=== PATIENT | male | born 1985 | race Hispanic/Latino ===

== ENCOUNTER 2017-04-03 08:05 | Inpatient (IN) | payer MEDICAID, MEDICARE ==
[2017-04-03] MEDS ORDERED: Ketorolac Tromethamine 30 MG/ML VIAL ONE (08:29)
[2017-04-03] MEDS ORDERED: Ondansetron HCl/PF 4 MG/2 ML Vial ONE ×2 (08:29→10:52)
[2017-04-03] MEDS ORDERED: Insulin Regular 300 UNITS/3 ML VIAL ONE (08:29)
--- NOTE | 2017-04-03 08:54 | RAD ---
PORTABLE CHEST 1 VIEW: Date: 04/03/17 Time: 0759 hours HISTORY: Chest pain. FINDINGS: Comparison made with exam of 03/02/17. There is elevation of the right hemidiaphragm. The heart size is normal. No confluent areas of consol idation, pneumothorax, or pleural effusions are seen. IMPRESSION: No acute process. POS: [facility]
[2017-04-03 09:01] LABS: Troponin I 0.013 ng/mL (< 0.028)
[2017-04-03 09:06] LABS: Hematocrit 38.8 % (42.0-52.0); Red Blood Cell (RBC) Count 4.82 mill/uL (4.70-6.10); White Blood Cell (WBC) Count 5.1 thou/uL (4.8-10.8)
[2017-04-03 09:11] LABS: Mean Platelet Volume 7.1 fL (7.4-10.4); Neutrophil 54 % (42-75); Specimen Anomalies: Lipemic Plasma
[2017-04-03 09:53] LABS: ALT (SGPT) 9 U/L (8-55); AST (SGOT) 7 U/L (5-34); Alkaline Phosphatase 105 U/L (40-150); Anion Gap 17 mmol/L (10-20); BUN (Urea Nitrogen) 16 mg/dL (8.9-20.6); Bilirubin, Total 0.5 mg/dL (0.2-1.2); Calc. Creatinine Clearance 0 mL/min (70-130); Calcium 9.7 mg/dL (7.8-10.44); Carbon Dioxide 22 mmol/L (22-29); Chloride 91 mmol/L (98-107); Estimated GFR-MDRD Greater than 90; Globulin 4.7 g/dL (2.4-3.5); Protein, Total 8.9 g/dL (6.0-8.3)
[2017-04-03 09:54] LABS: Lipase 597 U/L (8-78)
[2017-04-03] MEDS ORDERED: Morphine 4 MG/ML VIAL ONE (10:52)
[2017-04-03] MEDS ORDERED: Dextrose 5% in Water 1,000 ML IV PRN (12:53)
[2017-04-03] MEDS ORDERED: Labetalol HCl 100 MG/20 ML VIAL SLOW IVP PRN (12:53)
[2017-04-03] MEDS ORDERED: Lorazepam 2 MG/ML VIAL SLOW IVP PRN ×2 (12:53→16:03)
[2017-04-03] MEDS ORDERED: Dextrose 50% Abboject 50 ML SYRINGE SLOW IVP PRN (12:53)
[2017-04-03] MEDS ORDERED: hydrALAZINE 20 MG/ML VIAL SLOW IVP PRN (12:53)
[2017-04-03] MEDS ORDERED: Morphine 4 MG/ML VIAL SLOW IVP PRN ×3 (13:00→16:03)
[2017-04-03 13:14] VITALS: BMI 33.8
[2017-04-03] MEDS: Sodium Chloride 0.9% 1,000 ML IV SCH ×2 (13:17→19:57)
[2017-04-03] MEDS ORDERED: Acetaminophen 325 MG TAB PO PRN (13:27)
[2017-04-03] MEDS ORDERED: HYDROcodone/Acetaminophen 5/325 mg Tablet PO PRN ×2 (13:28)
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
[2017-04-03] MEDS: Ondansetron HCl/PF 4 MG/2 ML Vial IVP PRN ×2 (15:21→20:01)
[2017-04-03] MEDS: Morphine 4 MG/ML VIAL SLOW IVP PRN ×2 (16:25→19:59)
[2017-04-03] MEDS: Famotidine/PF 20 mg/2ml Vial SLOW IVP SCH (19:58)
[2017-04-03] MEDS: Insulin Detemir 100 UNITS/ML 10 UNITS in Admixture Fee 1 EACH SC SCH (19:59)
[2017-04-04] MEDS: Sodium Chloride 0.9% 1,000 ML IV SCH ×4 (00:55→22:00)
[2017-04-04] MEDS: Morphine 4 MG/ML VIAL SLOW IVP PRN ×6 (00:56→20:33)
[2017-04-04 06:42] LABS: BUN (Urea Nitrogen) Less than 20 mg/dL (8.9-20.6)
[2017-04-04 07:29] LABS: Chloride 98 mmol/L (98-107)
[2017-04-04 07:30] LABS: Calcium 8.7 mg/dL (7.8-10.44)
[2017-04-04 07:34] LABS: Calc. Creatinine Clearance 171 mL/min (70-130); Estimated GFR-MDRD Greater than 90
[2017-04-04] MEDS: Ondansetron HCl/PF 4 MG/2 ML Vial IVP PRN ×2 (07:46→14:38)
[2017-04-04] MEDS: Famotidine/PF 20 mg/2ml Vial SLOW IVP SCH ×2 (07:50→20:28)
[2017-04-04 08:09] LABS: Band 8 % (5-11); Mean Platelet Volume 10.6 fL (7.4-10.4); Neutrophil 61 % (42-75)
[2017-04-04 08:10] LABS: Specimen Anomalies: Lipemic Plasma
[2017-04-04 08:18] LABS: Anion Gap 18 mmol/L (10-20); Carbon Dioxide 10 mmol/L (22-29)
--- NOTE | 2017-04-04 11:05 | PQF ---
CLINICAL DOCUMENTATION IMPROVEMENT CLARIFICATION FORM: ICD-10 Updated PLEASE DO AN ADDENDUM TO THE PROGRESS NOTE WITH ANY DOCUMENTATION UPDATES OR ADDITIONS AND CARRY THROUGH TO DC SUMMARY. THANK YOU. DATE: 04/04 ATTN: DR. LENORE BATRES Please exercise your independent, professional judgment in responding to the clarification form. Clinical indicators are provided on the bottom of this form for your review Please check appropriate box(s): [X ] Hyponatremia [ ] Hypernatremia [ X] Other diagnosis _Hyponatremia due to hypertryglyceridemia [ ] Unable to determine For continuity of documentation, please document condition throughout progress notes and discharge summary. Thank You. CLINICAL INDICATORS - SIGNS / SYMPTOMS/ LABS are present in the medical record: SODIUM: 126 (ON ADMIT, 04/03) 122 (04/04) RISK FACTORS: RECURRENT PANCREATITIS NAUSEA & VOMITING TREATMENT: IVF (NS 04/03 - PRESENT) IV ANTIEMETICS (ZOFRAN 04/03 - PRESENT) NPO STATUS THANK YOU! Davina (This form is maintained as a part of the permanent medical record) 2014 [employer]. All Rights Reserved Davina Beck RN, BSN [email or web address] Office: [phone] [facility]
--- NOTE | 2017-04-04 12:20 | PDOC.PN ---
- Subjective Encounter Start Date: 04/04/17 Encounter Start Time: 12:19 Mr. Puga was seen today in follow-up of acute pancreatitis. He says the abdominal pain has improved. He was able to get up take a shower and move around the room some. He says the headache is now bothering him from the sinusitis and Han's Palsy. - Objective Resuscitation Status: Resuscitation Status FULL:Full Resuscitation MAR Reviewed: Yes Vital Signs & Weight: Vital Signs (12 hours) Temp Pulse Resp BP BP Pulse Ox 04/04/17 11:26 98.2 F 103 H 16 151/89 H 95 04/04/17 08:03 98.1 F 103 H 16 166/98 H 97 04/04/17 08:00 98.1 F 103 H 16 97 04/04/17 06:25 99 152/94 H 04/04/17 05:13 98.2 F 109 H 20 147/103 H 96 04/04/17 02:00 97.9 F 104 H 20 161/90 H 95 I&O: 04/03/17 04/04/17 04/05/17 06:59 06:59 06:59 Intake Total 1370 Output Total 1800 Balance -430 Result Diagrams: 04/04/17 04:36 04/04/17 06:49 Additional Labs: Accuchecks 04/04/17 04/04/17 04/03/17 11:29 05:12 20:09 POC Glucose 243 H 211 H 242 H 04/03/17 04/03/17 16:47 13:33 POC Glucose 247 H 281 H Phys Exam - Physical Examination HEENT: PERRLA Respiratory: no wheezing, no rales, no rhonchi, clear to auscultation bilateral Cardiovascular: RRR, no significant murmur Gastrointestinal: soft, positive bowel sounds + Diffuse upper abdominal tenderness no rebound or guarding Musculoskeletal: no edema Dx/Plan (1) Acute pancreatitis Code(s): K85.90 - ACUTE PANCREATITIS WITHOUT NECROSIS OR INFECTION, UNSP Status: Acute Qualifiers: Pancreatitis type: other Comment: due to hyper TG (2) Diabetes type 2, uncontrolled Code(s): E11.65 - TYPE 2 DIABETES MELLITUS WITH HYPERGLYCEMIA Status: Chronic (3) Hypertriglyceridemia Code(s): E78.1 - PURE HYPERGLYCERIDEMIA Status: Chronic (4) Hypothyroidism Code(s): E03.9 - HYPOTHYROIDISM, UNSPECIFIED Status: Chronic (5) Obesity (BMI 30.0-34.9) Code(s): E66.9 - OBESITY, UNSPECIFIED Status: Chronic - Plan * Recurrent Pancreatitis- likely from hypertryglyceridemia- will check a lipid panel * He says he has improved a little- will give a trial of a clear liquid diet * Hyponatremia- this may be due to elevated tryglycerides- will check a lipid panel * Continue IV saline * Re-check serum sodium * DM- blood glucose is stable- continue SSI * Will add Toradol to help with pain control of the headache.
[2017-04-04] MEDS: Ketorolac Tromethamine 30 MG/ML VIAL IVP PRN ×2 (14:35→20:32)
[2017-04-04 14:56] LABS: Cholesterol Greater than 700 mg/dL (< 200 Desired)
[2017-04-04] MEDS: Insulin Detemir 100 UNITS/ML 10 UNITS in Admixture Fee 1 EACH SC SCH (20:27)
[2017-04-05] MEDS: Ondansetron HCl/PF 4 MG/2 ML Vial IVP PRN ×3 (01:06→20:14)
[2017-04-05] MEDS: Morphine 4 MG/ML VIAL SLOW IVP PRN ×5 (01:06→20:14)
[2017-04-05] MEDS: Sodium Chloride 0.9% 1,000 ML IV SCH ×5 (04:13→18:34)
[2017-04-05] MEDS: Ketorolac Tromethamine 30 MG/ML VIAL IVP PRN ×4 (05:25→22:25)
[2017-04-05] MEDS: HumaLOG 300 UNITS/3 ML VIAL SC PRN ×3 (05:27→17:17)
[2017-04-05 06:21] LABS: Chloride 104 mmol/L (98-107)
[2017-04-05 08:24] LABS: Carbon Dioxide 10 mmol/L (22-29)
[2017-04-05 08:31] LABS: BUN (Urea Nitrogen) 6 mg/dL (8.9-20.6); Calc. Creatinine Clearance 190 mL/min (70-130); Estimated GFR-MDRD Greater than 90
[2017-04-05 08:34] LABS: Calcium 7.6 mg/dL (7.8-10.44)
[2017-04-05 08:35] LABS: Anion Gap 14 mmol/L (10-20)
[2017-04-05] MEDS: Famotidine/PF 20 mg/2ml Vial SLOW IVP SCH ×2 (08:46→20:19)
[2017-04-05] MEDS: Gemfibrozil 600 MG TAB PO SCH ×2 (08:46→17:10)
--- NOTE | 2017-04-05 14:25 | PDOC.PN ---
- Subjective Encounter Start Date: 04/05/17 Encounter Start Time: 09:00 states that the pain is improving. He states he is sleepy due to the pain meds. tolerated jello and milk this morning - Objective Resuscitation Status: Resuscitation Status FULL:Full Resuscitation Vital Signs & Weight: Vital Signs (12 hours) Temp Pulse Resp BP Pulse Ox 04/05/17 11:26 98.3 F 113 H 16 141/85 H 95 04/05/17 08:00 98.6 F 103 H 16 97 04/05/17 07:16 98.6 F 103 H 16 146/80 H 97 04/05/17 05:00 97.8 F 104 H 20 173/96 H 98 I&O: 04/04/17 04/05/17 04/06/17 06:59 06:59 06:59 Intake Total 1370 1508 Output Total 1800 5000 Balance -430 3492 Result Diagrams: 04/04/17 04:36 04/05/17 04:35 Additional Labs: Accuchecks 04/05/17 04/05/17 04/05/17 11:14 05:18 00:52 POC Glucose 312 H 285 H 219 H 04/04/17 04/04/17 20:00 16:21 POC Glucose 257 H 224 H Phys Exam - Physical Examination HEENT: PERRLA, moist MMs, sclera anicteric Neck: no nodes Respiratory: no wheezing, no rhonchi, clear to auscultation bilateral Cardiovascular: RRR, no significant murmur Gastrointestinal: soft, no distention, positive bowel sounds diffuse tenderness- no guarding or rebound Musculoskeletal: no edema, pulses present Neurological: non-focal, normal sensation, moves all 4 limbs Psychiatric: normal affect Deviation from normal: lethargic but oriented Skin: no rash, normal turgor, cap refill <2 seconds Dx/Plan (1) Acute pancreatitis Code(s): K85.90 - ACUTE PANCREATITIS WITHOUT NECROSIS OR INFECTION, UNSP Status: Acute Qualifiers: Pancreatitis type: other Comment: due to hyper TG (2) Hyperglycemia due to type 2 diabetes mellitus Code(s): E11.65 - TYPE 2 DIABETES MELLITUS WITH HYPERGLYCEMIA Status: Acute (3) Hypertriglyceridemia Code(s): E78.1 - PURE HYPERGLYCERIDEMIA Status: Chronic (4) Hypothyroidism Code(s): E03.9 - HYPOTHYROIDISM, UNSPECIFIED Status: Chronic - Plan cont current plan of care * . will decreased morphine dose advance diet to solid foods this evening if better tmrw, pt can likely be dc'ed home
--- NOTE | 2017-04-05 15:40 | EKG ---
Test Reason : EPIGASTRIC PAIN Blood Pressure : / mmHG Vent. Rate : 100 BPM Atrial Rate : 100 BPM P-R Int : 150 ms QRS Dur : 094 ms QT Int : 344 ms P-R-T Axes : 022 -50 070 degrees QTc Int : 443 ms Normal sinus rhythm Left anterior fascicular block Cannot rule out Inferior infarct , age undetermined Abnormal ECG Confirmed by JOHNATHON KEVIN D.O. ([id number]), editor greeting card SVEN MENA ([id number]) on 04/05/2017 3:39:52 PM Referred By: HERBERTH Confirmed By:JOHNATHON KEVIN D.O.
[2017-04-05] MEDS: Insulin Detemir 100 UNITS/ML 10 UNITS in Admixture Fee 1 EACH SC SCH (20:18)
[2017-04-06] MEDS: Sodium Chloride 0.9% 1,000 ML IV SCH ×6 (00:46→22:44)
[2017-04-06] MEDS: HumaLOG 300 UNITS/3 ML VIAL SC PRN ×5 (00:47→20:44)
[2017-04-06] MEDS: Morphine 4 MG/ML VIAL SLOW IVP PRN ×6 (01:28→22:44)
[2017-04-06] MEDS: Ketorolac Tromethamine 30 MG/ML VIAL IVP PRN ×3 (03:34→18:51)
[2017-04-06 07:11] LABS: Chloride 108 mmol/L (98-107)
[2017-04-06 07:12] LABS: Calcium 8.7 mg/dL (7.8-10.44)
[2017-04-06 07:14] LABS: Anion Gap 17 mmol/L (10-20); Carbon Dioxide 10 mmol/L (22-29)
[2017-04-06 07:16] LABS: Calc. Creatinine Clearance 182 mL/min (70-130); Estimated GFR-MDRD Greater than 90
[2017-04-06 07:17] LABS: BUN (Urea Nitrogen) 8 mg/dL (8.9-20.6)
[2017-04-06] MEDS: Gemfibrozil 600 MG TAB PO SCH ×2 (08:01→15:49)
[2017-04-06] MEDS: Famotidine/PF 20 mg/2ml Vial SLOW IVP SCH ×2 (08:02→20:44)
[2017-04-06] MEDS: Ondansetron HCl/PF 4 MG/2 ML Vial IVP PRN (08:15)
[2017-04-06] MEDS: Insulin Detemir 100 UNITS/ML 10 UNITS in Admixture Fee 1 EACH SC SCH (20:43)
[2017-04-07] MEDS ORDERED: Bisacodyl 5 MG TAB PO PRN (01:53)
[2017-04-07] MEDS ORDERED: Mag-Al 1200 mg/1200 mg/30 ML UDCUP PO PRN (01:53)
[2017-04-07] MEDS ORDERED: Calcium Carbonate 500 MG ChewTAB PO PRN ×2 (01:53→01:54)
[2017-04-07] MEDS ORDERED: Milk Of Magnesia 30 ML UDCUP PO PRN (01:53)
[2017-04-07] MEDS ORDERED: Polyethylene Glycol 3350 17 GM Packet PO PRN (01:53)
[2017-04-07] MEDS: Ketorolac Tromethamine 30 MG/ML VIAL IVP PRN (02:00)
[2017-04-07] MEDS: Sodium Chloride 0.9% 1,000 ML IV SCH ×3 (04:22→12:42)
[2017-04-07] MEDS: HumaLOG 300 UNITS/3 ML VIAL SC PRN ×2 (05:55→12:03)
[2017-04-07] MEDS: Morphine 4 MG/ML VIAL SLOW IVP PRN ×2 (05:58→09:36)
[2017-04-07] MEDS: Gemfibrozil 600 MG TAB PO SCH (05:58)
[2017-04-07] MEDS: Famotidine/PF 20 mg/2ml Vial SLOW IVP SCH (08:42)
[2017-04-07] MEDS ORDERED: Acetaminophen/Codeine 30-300mg Tablet PO PRN (11:25)
--- NOTE | 2017-04-07 11:51 | DIS ---
TRANSFER OF CARE NOTE PRIMARY CARE PROVIDER: Dr. Cruz Patton DATE OF ADMISSION: 04/03/2017 DATE OF DISCHARGE: 04/07/2017 DISCHARGE DISPOSITION: Home. FINAL DIAGNOSES: 1. Acute on chronic pancreatitis. 2. Hyperlipidemia. 3. Type 2 diabetes with hyperglycemia. 4. Hypertension. DISCHARGE MEDICATIONS: Humalog 16 units subcu 1200 hours daily, 16 units subcu 0800 hours daily, 16 units subcu at 1700 hours daily, Lopid 600 mg b.i.d., gabapentin 900 mg p.o. t.i.d., Lisinopril 10 mg a day, Synthroid 75 mcg a day, Levemir 45 units subcu morning and evening, metformin 500 mg in the m orning, Tegretol 600 mg twice a day, Paxil 20 mg a day, trazodone 50 mg p.o. at bedtime. ALLERGIES: PROZAC, HEPARIN. CODE STATUS: Full. PENDING AT THE TIME OF DISCHARGE: Nothing. CONSULTATIONS: None. PROCEDURES: None. DIET: Diabetic. HOSPITAL COURSE: The patient admitted to the hospital through [facility] with a bdominal pain, nausea, and vomiting. He admitted to dietary indiscretions. His initial lipase was 5 97. His sodium was low at 126-129. He was placed n.p.o., put on antiemetics, IV morphine for pain. His abdominal pain is resolved. He was taking clear liquids yesterday. Today, he ate an omelet for breakfast, is feeling well. His abdominal exam is benign. He is being discharged to follow up with Dr. Patton in 7 days. He has been restarted on his home medicines.
[2017-04-07 12:02] VITALS: BP 117/73; TEMP 98.7
== END 2017-04-07 14:06 | disposition home or self-care (01) | DRG 439 ==
LOC: ERS 08:05 → T4-B 12:46
PROVIDERS: ADMIT Internal Medicine; ATTEND Internal Medicine
DX: K85.90 Acute pancreatitis without necrosis or infection, unspecified (principal); E87.1 Hypo-osmolality and hyponatremia; E11.69 Type 2 diabetes mellitus with other specified complication; E11.65 Type 2 diabetes mellitus with hyperglycemia; I10 Essential (primary) hypertension; K86.1 Other chronic pancreatitis; E03.9 Hypothyroidism, unspecified; G51.0 Bell's palsy; E78.1 Pure hyperglyceridemia; E66.9 Obesity, unspecified; F31.9 Bipolar disorder, unspecified; R51 Headache; Z68.33 Body mass index [BMI] 33.0-33.9, adult; Z88.8 Allergy status to other drugs, medicaments and biological substances; Z79.4 Long term (current) use of insulin
CPT/HCPCS: 36415; 36416; 71010; 80048; 80053; 80061; 82553; 83690; 84484; 85025; 93005; 96361; 96374; 96375; 96376; A4216; J1815; J1885; J2060; J2270; J2405; S0028

== ENCOUNTER 2017-04-17 23:27 | Inpatient (IN) | payer MEDICARE ==
[2017-04-17] MEDS ORDERED: Ondansetron ODT 4 MG TAB ONE (23:41)
[2017-04-18 00:41] LABS: #Eosinphils 0.2 thou/uL (0.0-0.7); #Lymphocytes 3.3 thou/uL (1.20-3.40); #Monocytes 0.4 thou/uL (0.11-0.59); #Neutrophils 5.2 thou/uL (1.40-6.50); %Basophils 0.3 % (0.0-1.0); %Eosinophils 1.8 % (0.0-10.0); %Monocytes 4.8 % (0.0-10.0); %Neutrophils 57.2 % (42.0-75.0); Hemoglobin 14.6 g/dL (14.0-18.0); Mean Corpuscular HGB CONC 37.6 g/dL (32.0-36.0); Mean Corpuscular Hemoglobin 30.4 pg (27.0-31.0); Mean Corpuscular Volume 80.9 fl (80.0-94.0); Mean Platelet Volume 9.6 fL (7.4-10.4); Platelet Count 87 thou/uL (130-400); RBC Distribution Width 13.5 % (11.5-14.5); Red Blood Cell (RBC) Count 4.81 mill/uL (4.70-6.10); White Blood Cell (WBC) Count 9.2 thou/uL (4.8-10.8)
[2017-04-18 00:48] LABS: PLT Morphology Comment Appears Decreased
[2017-04-18] MEDS ORDERED: Ondansetron HCl/PF 4 MG/2 ML Vial ONE ×3 (01:00→06:30)
[2017-04-18 01:08] LABS: Bilirubin, Total Less than 1.0 mg/dL (0.2-1.2)
[2017-04-18 01:16] LABS: Albumin 4.5 g/dL (3.5-5.0); Calcium 9.8 mg/dL (7.8-10.44); Chloride 83 mmol/L (98-107); Glucose 279 mg/dL (70-105); Potassium 3.6 mmol/L (3.5-5.1); Sodium 117 mmol/L (136-145)
[2017-04-18] MEDS ORDERED: Morphine 4 MG/ML VIAL ONE ×3 (01:26→12:00)
[2017-04-18 02:03] LABS: Base Excess-Venous 4.5 mmol/L (-30.0-30.0); CO2 Tension (PvCO2) 52.2 mmHg (41.0-51.0); Calcium, Ionized 1.04 mmol/L (1.12-1.32); Hemoglobin - Calc 14.9 g/dL (12.0-18.0); O2 Tension (PvO2) 51.8 mmHg (35.0-45.0); Potassium 4.9 mmol/L (3.4-4.7); T. Carbon Dioxide 32.6 mmol/L (1.0-85.0); pH (Venous) 7.382 (7.35-7.45); vO2 Saturation-calc 84.9 % (0.0-100.0)
[2017-04-18 02:34] LABS: Alkaline Phosphatase 107 U/L (40-150); BUN (Urea Nitrogen) 12 mg/dL (8.9-20.6); Calc. Creatinine Clearance 0 mL/min (70-130); Carbon Dioxide 22 mmol/L (22-29); Estimated GFR-MDRD Greater than 90; Globulin 1.9 g/dL (2.4-3.5); Protein, Total 6.4 g/dL (6.0-8.3)
[2017-04-18 02:35] LABS: ALT (SGPT) 10 U/L (8-55); AST (SGOT) 13 U/L (5-34); Anion Gap 16 mmol/L (10-20); Lipase 695 U/L (8-78)
[2017-04-18] MEDS ORDERED: Promethazine HCl 25 MG/ML VIAL ONE (03:20)
[2017-04-18 03:22] LABS: BUN (Urea Nitrogen) 11 mg/dL (8.9-20.6); Calc. Creatinine Clearance 0 mL/min (70-130); Carbon Dioxide 25 mmol/L (22-29); Chloride 101 mmol/L (98-107); Estimated GFR-MDRD Greater than 90; Potassium 4.1 mmol/L (3.5-5.1); Sodium 137 mmol/L (136-145)
[2017-04-18 03:23] LABS: Anion Gap 15 mmol/L (10-20); Calcium 7.8 mg/dL (7.8-10.44); Glucose 287 mg/dL (70-105)
[2017-04-18] MEDS ORDERED: Acetaminophen 325 MG TAB PO PRN (04:11)
[2017-04-18] MEDS ORDERED: Bisacodyl 5 MG TAB PO PRN (04:11)
[2017-04-18] MEDS ORDERED: Dextrose 50% Abboject 50 ML SYRINGE SLOW IVP PRN (04:34)
[2017-04-18] MEDS ORDERED: Dextrose 5% in Water 1,000 ML IV PRN (04:34)
[2017-04-18] MEDS ORDERED: hydrALAZINE 20 MG/ML VIAL SLOW IVP PRN (04:35)
[2017-04-18 04:56] LABS: Bilirubin Negative (Negative); Blood, Urine Negative (Negative); Clarity CLEAR (Clear); Glucose, Urine (Dipstick) 500 mg/dL (Negative); Leukocyte Negative (Negative); Nitrite Negative (Negative); Protein, Urine (Dipstick) 300 mg/dL (Neg-Trace); Urobilinogen 0.2 mg/dL (0.2-1.0)
[2017-04-18 04:59] LABS: Bacteria/HPF None Seen HPF (None Seen); Hyaline Casts/LPF 0-3 HYALINE CAST LPF (0-3 Hyaline); Pathc Cast-AUWi Flag 0.13 (0-2.49); RBC/HPF 0-3 HPF (0-3); Squamous Epithelial 0-3 HPF (0-3)
[2017-04-18 05:03] LABS: Specific Gravity, Urine 1.046 (1.002-1.036)
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
--- NOTE | 2017-04-18 08:28 | RAD ---
KUB: HISTORY: Abdominal pain. FINDINGS: The bowel gas pattern is nonobstructive. There is a mild amount of stool within the colon. Postop c holecystectomy changes are seen. IMPRESSION: No acute findings. POS: [facility]
--- NOTE | 2017-04-18 08:39 | CT ---
PRELIMINARY REPORT/[facility]/EMERGENCY AFTER HOURS PROCEDURE: EXAM: CT Abdomen and Pelvis With Intravenous Contrast EXAM DATE/TIME: Exam ordered 04/18/2017 4:11 AM CLINICAL HISTORY: 31 years old, male; Pain; Abdominal pain; Generalized; Patient HX: Abd pain TECHNIQUE: Axial computed tomography images of the abdomen and pelvis with intravenous contrast. Coronal reformatted images were created and reviewed. CONTRAST: 100 mL of ISOVUE administered intravenously. COMPARISON: No relevant prior studies available. FINDINGS: Lower thorax: There is subpleural atelectasis of the dependent portions of the lungs. ABDOMEN: Liver: There is diffuse mild enlargement of the liver. Gallbladder and bile ducts: There is a mild degree of common bile duct dilation. This may be related to prior cholecystectomy, however, correlation with bilirubin levels is recommended. Pancreas: There is inflammatory stranding surrounding the pancreas suspicious for acute pancreatitis. There is diminished attenuation of the pancreatic body/tail. Element of necrosis is possible. No win ck dilation. Spleen: The spleen is normal. Adrenals: The adrenal glands are normal. Kidneys and ureters: The kidneys are normal. No hydronephrosis. Stomach and bowel: The colon is normal. No obstruction. No mucosal thickening. Appendix: A normal appendix is identified. PELVIS: Bladder: The bladder is normal. Reproductive: The prostate gland and seminal vesicles are normal. ABDOMEN and PELVIS: Intraperitoneal space: Normal. No free air. No significant fluid collection. Bones/joints: No acute fracture. No dislocation. Soft tissues: Normal. Vasculature: There are extensive gastrosplenic venous collaterals and nonvisualization of the splenic vein suggestive of splenic vein thrombosis. No abdominal aortic aneurysm. Lymph nodes: Normal. No enlarged lymph nodes. IMPRESSION: 1. There is inflammatory stranding surrounding the pancreas compatible with acute pancreatitis. There is diminished attenuation of the pancreatic body/tail. Element of necrosis is possible. Correlation with lipase values is advised. 2. There are extensive gastrosplenic venous collaterals and nonvisualization of the splenic vein sugg estive of splenic vein thrombosis. Thank you for allowing us to participate in the care of your patient. Dictated and Authenticated by: Gurmeet Yarbrough MD 04/18/2017 5:10 AM Central Time ([place] & [place]) FINAL REPORT EMERGENCY/AFTER HOURS CT ABDOMEN AND PELVIS PERFORMED WITH INTRAVENOUS CONTRAST ENHANCEMENT: HISTORY: Abdominal pain. History of pancreatitis. COMPARISON: 09/15/2015 FINDINGS: ABDOMEN: The lung bases show atelectatic changes in the right lower lobe. There are fatty changes of the liver, which is enlarged and measures 24 cm in length. The spleen is also mildly enlarged, and it measures 14 cm. There are peripancreatic inflammatory changes seen. Th ere is a low attenuation area within the body of the pancreas, which has been present on previous exa ms. There is low attenuation change to the pancreatic tail. There is definitive pseudocyst formatio n. No air is seen to suggest any type of abscess. The gallbladder has been removed. The right and left adrenal glands and the right and left kidneys are normal in size. There is no sig nificant periaortic or mesenteric adenopathy. The appendix is normal and retrocecal in location. PELVIS: There is no adenopathy, mass, or free fluid. IMPRESSION: 1. Fatty changes of the liver with mild hepatosplenomegaly. 2. Findings compatible with pancreatitis. Some low attenuation change within the pancreatic tail co uld indicate developing necrotizing pancreatitis. There is persistent low attenuation density in the body region of the pancreas, which has been present on prior studies, stable in size. Could represe nt some type of cystic lesion of the pancreas. Could represent a pseudocyst. This report is in agreement with the temporary report issued by [facility]. POS: [facility]
--- NOTE | 2017-04-18 09:45 | PDOC.EVN ---
Event Note - Event Note Event Note: pt seen and evaluated f/u gi plan cont current mx
[2017-04-18] MEDS ORDERED: Insulin Regular 300 UNITS/3 ML VIAL ONE (09:46)
[2017-04-18] MEDS ORDERED: cefTRIAXone\\ROCEPHIN 1 GM in Sodium Chloride 0.9% 100 ML IVPB SCH (10:00)
[2017-04-18] MEDS: Sodium Chloride 0.9% 1,000 ML IV SCH ×2 (13:07→14:14)
[2017-04-18] MEDS: cefTRIAXone\\ROCEPHIN 1 GM, Syringe 0.4 ML in Sterile Water 9.6 ML SLOW IVP SCH (13:08)
[2017-04-18] MEDS ORDERED: ISOVUE-370 76%-LOCM 1 ML ONE (13:33)
[2017-04-18] MEDS ORDERED: Morphine 2 MG/ML SYRINGE SLOW IVP PRN (14:20)
[2017-04-18] MEDS: Ondansetron HCl/PF 4 MG/2 ML Vial IVP PRN ×2 (15:04→22:13)
[2017-04-18] MEDS ORDERED: Morphine 4 MG/ML VIAL SLOW IVP PRN (16:30)
[2017-04-18 17:16] LABS: Troponin I 0.031 ng/mL (< 0.028)
[2017-04-18] MEDS: HumaLOG 300 UNITS/3 ML VIAL SC PRN ×2 (17:44→22:36)
[2017-04-18] MEDS: Morphine 4 MG/ML VIAL SLOW IVP PRN (20:22)
[2017-04-18] MEDS: Ketorolac Tromethamine 30 MG/ML VIAL IVP PRN (22:13)
[2017-04-18 22:49] LABS: Troponin I 0.013 ng/mL (< 0.028)
[2017-04-19] MEDS: Morphine 4 MG/ML VIAL SLOW IVP PRN ×3 (00:31→08:40)
[2017-04-19] MEDS: Sodium Chloride 0.9% 1,000 ML IV SCH ×3 (00:33→16:30)
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
[2017-04-19] MEDS: Ketorolac Tromethamine 30 MG/ML VIAL IVP PRN ×2 (06:32→21:38)
[2017-04-19] MEDS: HumaLOG 300 UNITS/3 ML VIAL SC PRN ×4 (06:35→22:58)
[2017-04-19 06:41] LABS: Albumin 3.7 g/dL (3.5-5.0); Chloride 98 mmol/L (98-107); Sodium 131 mmol/L (136-145)
[2017-04-19 06:42] LABS: Calcium 9.2 mg/dL (7.8-10.44)
[2017-04-19 06:43] LABS: Globulin 4.3 g/dL (2.4-3.5); Glucose 252 mg/dL (70-105)
[2017-04-19 06:45] LABS: #Eosinphils 0.1 thou/uL (0.0-0.7); #Lymphocytes 1.1 thou/uL (1.20-3.40); #Monocytes 1.1 thou/uL (0.11-0.59); #Neutrophils 12.4 thou/uL (1.40-6.50); %Basophils 0.2 % (0.0-1.0); %Eosinophils 0.4 % (0.0-10.0); %Lymphocytes 7.4 % (21.0-51.0); %Monocytes 7.5 % (0.0-10.0); %Neutrophils 84.5 % (42.0-75.0); Bilirubin, Total 3.3 mg/dL (0.2-1.2); Hemoglobin 13.2 g/dL (14.0-18.0); Mean Corpuscular HGB CONC 34.1 g/dL (32.0-36.0); Mean Corpuscular Hemoglobin 28.7 pg (27.0-31.0); Mean Platelet Volume 12.6 fL (7.4-10.4); Platelet Count 78 thou/uL (130-400); RBC Distribution Width 13.9 % (11.5-14.5); Red Blood Cell (RBC) Count 4.61 mill/uL (4.70-6.10); White Blood Cell (WBC) Count 14.7 thou/uL (4.8-10.8)
[2017-04-19 06:46] LABS: Calc. Creatinine Clearance 216 mL/min (70-130); Estimated GFR-MDRD Greater than 90
[2017-04-19 06:47] LABS: BUN (Urea Nitrogen) 4 mg/dL (8.9-20.6)
[2017-04-19 06:49] LABS: ALT (SGPT) 52 U/L (8-55); Cardiac Risk 21.9 (Less than 4.5); Cholesterol 525 mg/dl (< 200 Desired); HDL Cholesterol 24 mg/dL (>60 Neg Risk)
[2017-04-19 07:11] LABS: Carbon Dioxide Less than 16 mmol/L (22-29)
[2017-04-19 07:12] LABS: Triglycerides Greater than 3800 mg/dL (Less than 150)
[2017-04-19 07:35] LABS: Alkaline Phosphatase 121 U/L (40-150)
[2017-04-19 08:12] LABS: PLT Morphology Comment Appears Decreased
[2017-04-19] MEDS: cefTRIAXone\\ROCEPHIN 1 GM, Syringe 0.4 ML in Sterile Water 9.6 ML SLOW IVP SCH (08:43)
[2017-04-19] MEDS: Levothyroxine Sodium 75 MCG TAB PO SCH (08:45)
[2017-04-19] MEDS: Ondansetron HCl/PF 4 MG/2 ML Vial IVP PRN ×3 (11:07→21:44)
[2017-04-19] MEDS: Morphine 2 MG/ML SYRINGE SLOW IVP PRN ×6 (12:16→22:59)
--- NOTE | 2017-04-19 13:18 | PDOC.PN ---
- Subjective Encounter Start Date: 04/19/17 Encounter Start Time: 13:17 c/o abd pain c/o n/v no f/c - Objective MAR Reviewed: Yes Vital Signs & Weight: Vital Signs (12 hours) Temp Pulse Resp BP Pulse Ox 04/19/17 11:25 98.0 F 113 H 18 153/95 H 95 04/19/17 08:00 98.4 F 112 H 18 94 L 04/19/17 07:50 98.4 F 112 H 18 131/83 94 L Weight Weight 200 lb I&O: 04/18/17 04/19/17 04/20/17 06:59 06:59 06:59 Intake Total 600 1200 Output Total 1000 825 Balance -400 375 Result Diagrams: 04/19/17 05:15 04/19/17 05:15 Additional Labs: Accuchecks 04/19/17 04/19/17 04/18/17 10:56 05:36 22:23 POC Glucose 219 H 233 H 250 H 04/18/17 16:12 POC Glucose 276 H Phys Exam - Physical Examination Constitutional: NAD HEENT: PERRLA Neck: no JVD Respiratory: no wheezing Cardiovascular: no significant murmur tender in epigastric area Musculoskeletal: pulses present Neurological: moves all 4 limbs Psychiatric: A&O x 3 Dx/Plan (1) Acute pancreatitis Code(s): K85.90 - ACUTE PANCREATITIS WITHOUT NECROSIS OR INFECTION, UNSP Status: Acute Comment: due to hyper TG (2) Hyperglycemia due to type 2 diabetes mellitus Code(s): E11.65 - TYPE 2 DIABETES MELLITUS WITH HYPERGLYCEMIA Status: Acute (3) Anxiety and depression Code(s): F41.9 - ANXIETY DISORDER, UNSPECIFIED; F32.9 - MAJOR DEPRESSIVE DISORDER, SINGLE EPISODE, UNSPECIFIED Status: Chronic (4) Hypertriglyceridemia Code(s): E78.1 - PURE HYPERGLYCERIDEMIA Status: Chronic (5) Obesity (BMI 30.0-34.9) Code(s): E66.9 - OBESITY, UNSPECIFIED Status: Chronic - Plan * ivf * pain mx * check lipase * start meds for high tgl * gi input appreciated
[2017-04-19] MEDS: Gemfibrozil 600 MG TAB PO SCH (16:30)
[2017-04-19] MEDS: Promethazine HCl 25 MG SUPP PR PRN (18:23)
--- NOTE | 2017-04-19 19:36 | PRG ---
DATE OF SERVICE: 04/19/2017 SUBJECTIVE: This is a 31-year-old Latin-Polish male with hypertension, diabetes mellitus, hyperlipidemia. The patient has had recurrent pancreatitis over the last 7-8 years. He does not drink alcohol. He also has had a laparoscopic cholecystectomy in 2016. His pancreatitis was due to hyperlipidemia. On admission, his serum was lipemic. The patient still has abdominal pain. There is no nausea or vomiting today. His pain is predominantly over the epigastric area going into the left upper quadrant. PHYSICAL EXAMINATION: GENERAL: Revealed moderate discomfort. VITAL SIGNS: Afebrile. Pulse is 113, blood pressure is 153/95. CARDIOVASCULAR SYSTEM AND LUNGS: Within normal limits. ABDOMEN: Soft to palpate. Abdomen is tender over the epigastric area and periumbilical area. There is no rebound or guarding. CLINICAL IMPRESSION: 1. Recurrent pancreatitis due to hyperlipidemia. 2. Diabetes. 3. Hypertension. RECOMMENDATIONS: 1. Keep n.p.o. 2. IV fluids. 3. Analgesics. 4. Follow up serum lipase, and when his pain improves, we will start p.o. fluids. ENRRIQUE
[2017-04-19] MEDS: Atorvastatin Calcium 40 MG TAB PO SCH (20:18)
[2017-04-20] MEDS: Morphine 2 MG/ML SYRINGE SLOW IVP PRN ×8 (00:58→22:24)
[2017-04-20] MEDS: Ondansetron HCl/PF 4 MG/2 ML Vial IVP PRN ×3 (03:43→22:24)
[2017-04-20] MEDS: Ketorolac Tromethamine 30 MG/ML VIAL IVP PRN ×3 (04:33→17:35)
[2017-04-20] MEDS: Promethazine HCl 25 MG SUPP PR PRN (04:36)
[2017-04-20 05:51] LABS: ALT (SGPT) 43 U/L (8-55)
[2017-04-20] MEDS: Sodium Chloride 0.9% 1,000 ML IV SCH (06:16)
[2017-04-20] MEDS: Gemfibrozil 600 MG TAB PO SCH ×2 (06:16→16:46)
[2017-04-20] MEDS: HumaLOG 300 UNITS/3 ML VIAL SC PRN ×3 (06:17→16:47)
[2017-04-20 06:19] LABS: #Lymphocytes 1.3 thou/uL (1.20-3.40); #Monocytes 0.8 thou/uL (0.11-0.59); #Neutrophils 9.1 thou/uL (1.40-6.50); %Basophils 0.1 % (0.0-1.0); %Eosinophils 0.3 % (0.0-10.0); %Lymphocytes 11.7 % (21.0-51.0); %Monocytes 7.3 % (0.0-10.0); %Neutrophils 80.6 % (42.0-75.0); Mean Corpuscular Hemoglobin 28.2 pg (27.0-31.0); Mean Corpuscular Volume 85.4 fl (80.0-94.0); Mean Platelet Volume 12.5 fL (7.4-10.4); PLT Morphology Comment Appears Adequate; Platelet Count 133 thou/uL (130-400); RBC Distribution Width 14.2 % (11.5-14.5); Red Blood Cell (RBC) Count 4.61 mill/uL (4.70-6.10); White Blood Cell (WBC) Count 11.2 thou/uL (4.8-10.8)
[2017-04-20 08:10] LABS: Albumin 3.4 g/dL (3.5-5.0)
[2017-04-20 08:11] LABS: Chloride 102 mmol/L (98-107); Potassium 4.6 mmol/L (3.5-5.1); Sodium 128 mmol/L (136-145)
[2017-04-20 08:12] LABS: Calcium 9.5 mg/dL (7.8-10.44); Globulin 4.8 g/dL (2.4-3.5); Glucose 231 mg/dL (70-105); Protein, Total 8.2 g/dL (6.0-8.3)
[2017-04-20 08:14] LABS: Anion Gap 22 mmol/L (10-20); Bilirubin, Total 3.3 mg/dL (0.2-1.2)
[2017-04-20 08:15] LABS: Alkaline Phosphatase 166 U/L (40-150)
[2017-04-20 08:16] LABS: BUN (Urea Nitrogen) 5 mg/dL (8.9-20.6); Calc. Creatinine Clearance 200 mL/min (70-130); Estimated GFR-MDRD Greater than 90
[2017-04-20 08:17] LABS: AST (SGOT) 54 U/L (5-34)
[2017-04-20 08:18] LABS: Lipase 134 U/L (8-78)
[2017-04-20] MEDS: Levothyroxine Sodium 75 MCG TAB PO SCH (08:31)
[2017-04-20 08:36] LABS: Carbon Dioxide 9 mmol/L (22-29)
[2017-04-20] MEDS ORDERED: Sodium Bicarbonate 50 MEQ in Dextrose 5 %-0.45 % NaCl 1,000 ML IV SCH (09:15)
[2017-04-20] MEDS: cefTRIAXone\\ROCEPHIN 1 GM, Syringe 0.4 ML in Sterile Water 9.6 ML SLOW IVP SCH (11:53)
[2017-04-20 13:41] LABS: Potassium 6.2 mmol/L (3.5-5.1); Sodium 128 mmol/L (136-145)
[2017-04-20 13:42] LABS: Chloride 104 mmol/L (98-107)
[2017-04-20 13:43] LABS: BUN (Urea Nitrogen) 7 mg/dL (8.9-20.6); Carbon Dioxide Less than 8 mmol/L (22-29)
[2017-04-20 13:44] LABS: Calc. Creatinine Clearance 170 mL/min (70-130); Calcium 8.5 mg/dL (7.8-10.44); Estimated GFR-MDRD Greater than 90; Glucose 215 mg/dL (70-105)
[2017-04-20] MEDS ORDERED: ISOVUE-370 76%-LOCM 1 ML ONE (13:49)
--- NOTE | 2017-04-20 14:50 | PRG ---
DATE OF SERVICE: 04/20/2017 SUBJECTIVE: Mr. Clifton Puga is a 31-year-old male with recurrent pancreatitis due to hyperlipidemia. The patient continues to have abdominal pain. There is no nausea. However, he is constantly belching. He is not passing flatus. His lipase level has been coming down from 695 to yesterday 177 and today to 134. However, his abdominal pain persists. He is on morphine [id number] and also on Toradol. he says he has less pain, but it is persistent. PHYSICAL EXAMINATION: GENERAL: He appears actually comfortable. VITAL SIGNS: Temperature 98.5 degrees Fahrenheit, pulse is 107, blood pressure 154/104. CARDIOVASCULAR SYSTEM: First and second heart sounds normal. LUNGS: Clear to auscultation. ABDOMEN: Actually very soft, does not show any guarding or rigidity. Abdomen is tender over the epigastric area, periumbilical area, and right upper quadrant. There is no rebound or guarding. Bowel sounds are active. LABORATORY DATA: From today, WBC is 11,200, hemoglobin 13, hematocrit 39.3, platelet count is 133,000, polymorphs 18, lymphocytes 11. Serum chemistries show sodium 128, potassium 4.6, chloride is 102, he is acidotic with bicarbonate of 19, but he does not appear to be toxic or acidotic. His CO2 level was normal at 25 on 04/18/2017, which had dropped to 16 yesterday. CLINICAL IMPRESSION: 1. Recurrent pancreatitis due to hyperlipidemia. 2. Diabetes. 3. Hypertension. 4. Acidosis. I am really not sure what is causing his acidosis. He is not having diarrhea and does appear actually septic. RECOMMENDATIONS: 1. Continue analgesics and IV fluids. 2. Repeat labs today with lactic acid. I will try to convey this to the hospitalist on-call. ENRRIQUE
--- NOTE | 2017-04-20 15:25 | PDOC.PN ---
- Subjective Encounter Start Date: 04/20/17 Encounter Start Time: 15:22 Subjective: c/o persistant pain.needing pain meds round the hour -: passing gas.no nausea/vomiting - Objective MAR Reviewed: Yes Vital Signs & Weight: Vital Signs (12 hours) Temp Pulse Resp BP BP Pulse Ox 04/20/17 11:50 98.1 F 106 H 18 132/88 97 04/20/17 10:00 96 04/20/17 08:30 106 H 16 146/94 H 96 04/20/17 08:00 98.5 F 107 H 20 96 04/20/17 07:50 98.5 F 107 H 20 154/105 H 96 04/20/17 05:15 98.1 F 109 H 18 148/89 H 96 Weight Weight 200 lb I&O: 04/19/17 04/20/17 04/21/17 06:59 06:59 06:59 Intake Total 600 2640 0 Output Total 1000 2600 1675 Balance -400 40 -1675 Result Diagrams: 04/20/17 04:59 04/20/17 12:58 Additional Labs: Accuchecks 04/20/17 04/20/17 04/19/17 11:36 04:59 21:19 POC Glucose 217 H 192 H 223 H 04/19/17 15:26 POC Glucose 216 H Phys Exam - Physical Examination Constitutional: NAD sleepy HEENT: PERRLA, moist MMs, sclera anicteric, oral pharynx no lesions Neck: no nodes, no JVD, supple, full ROM Respiratory: no wheezing, no rales, no rhonchi, clear to auscultation bilateral Cardiovascular: RRR, no significant murmur Gastrointestinal: soft, non-tender, no distention reduced Bowel sounds Musculoskeletal: no edema, pulses present Neurological: non-focal, normal sensation, moves all 4 limbs Psychiatric: normal affect, A&O x 3 Dx/Plan (1) Acute pancreatitis Code(s): K85.90 - ACUTE PANCREATITIS WITHOUT NECROSIS OR INFECTION, UNSP Status: Acute Comment: due to hyper TG (2) High anion gap metabolic acidosis Code(s): E87.2 - ACIDOSIS Status: Acute (3) Hyponatremia Code(s): E87.1 - HYPO-OSMOLALITY AND HYPONATREMIA Status: Acute Comment: Pseudohyponatremia (4) Splenic vein thrombosis Code(s): I82.890 - ACUTE EMBOLISM AND THROMBOSIS OF OTHER SPECIFIED VEINS Status: Acute (5) Diabetes type 2, uncontrolled Code(s): E11.65 - TYPE 2 DIABETES MELLITUS WITH HYPERGLYCEMIA Status: Chronic (6) Hypertriglyceridemia Code(s): E78.1 - PURE HYPERGLYCERIDEMIA Status: Chronic (7) Hypothyroidism Code(s): E03.9 - HYPOTHYROIDISM, UNSPECIFIED Status: Chronic - Plan DVT proph w/SCDs consult nephrology for severe metabolic acidosis.discussed w Dr. abdullahi -: will cont bicarb drip.change to D5 05/01 NS w 3 amp bicarb -: reckeck BMP in few hours -: Repeat CT scan.? necrosis in initial CT w splenic V thrombosis -: cont to monitor closely.hemodynamically stable.NPO * . Review of Systems - Review of Systems Constitutional: weakness, malaise. negative: fever, chills, sweats, other ENT: negative: Ear Pain, Ear Discharge, Nose Pain, Nose Discharge, Nose Congestion, Mouth Pain, Mouth Swelling, Throat Pain, Throat Swelling, Other Respiratory: negative: Cough, Dry, Shortness of Breath, Hemoptysis, SOB with Excertion, Pleuritic Pain, Sputum, Wheezing Cardiovascular: negative: chest pain, palpitations, orthopnea, paroxysmal nocturnal dyspnea, edema, light headedness, other Gastrointestinal: Abdominal Pain. negative: Nausea, Vomiting, Diarrhea, Constipation, Melena, Hematochezia, Other Genitourinary: negative: Dysuria, Frequency, Incontinence, Hematuria, Retention , Other Musculoskeletal: negative: Neck Pain, Shoulder Pain, Arm Pain, Back Pain, Hand Pain, Leg Pain, Foot Pain, Other Neurological: negative: Weakness, Numbness, Incoordination, Change in Speech, Confusion, Seizures, Other - Medications/Allergies Allergies/Adverse Reactions: Allergies Allergy/AdvReac Type Severity Reaction Status Date / Time fluoxetine HCl [From Prozac] Allergy Unknown Verified 06/20/15 03:23 heparin Allergy Verified 02/22/15 17:25 Medications: Current Medications Acetaminophen (Tylenol) 650 mg PO Q4H PRN PRN Reason: Headache/Fever or Pain Hydrocodone Bitart/Acetaminophen ([place] 10/325) 1 tab PO Q4H PRN PRN Reason: Mild-Moderate Pain (1-5) Atorvastatin Calcium (Lipitor) 80 mg PO HS [facility] Last Admin: 04/19/17 20:18 Dose: 80 mg Bisacodyl (Dulcolax) 10 mg PO DAILYPRN PRN PRN Reason: Constipation Dextrose/Water (Dextrose 50%) 25 gm SLOW IVP PRN PRN PRN Reason: Hypoglycemia Gemfibrozil (Lopid) 600 mg PO BIDAC [facility] Last Admin: 04/20/17 06:16 Dose: 600 mg Glucagon (Glucagon) 1 mg IM PRN PRN PRN Reason: Hypoglycemia Hydralazine HCl (Apresoline) 10 mg SLOW IVP Q6H PRN PRN Reason: SBP Greater Than 170 Last Admin: 04/18/17 14:25 Dose: 10 mg Dextrose/Water (D5w) 1,000 mls @ 0 mls/hr IV .Q0M PRN; As Directed PRN Reason: Hypoglycemia Sodium Bicarbonate 150 meq/ (Dextrose/Sodium Chloride) 1,150 mls @ 100 mls/hr IV .[id number] [facility] Insulin Human Lispro (Humalog) 0 units SC .MILD SLIDING SCALE PRN PRN Reason: Mild Correctional Scale Last Admin: 04/20/17 12:13 Dose: 4 unit Ketorolac Tromethamine (Toradol) 15 mg IVP Q6H PRN PRN Reason: Moderate Pain (4-6) Stop: 04/23/17 20:19 Last Admin: 04/20/17 11:54 Dose: 15 mg Levothyroxine Sodium (Synthroid) 75 mcg PO DAILY [facility] Last Admin: 04/20/17 08:31 Dose: 75 mcg Morphine Sulfate (Morphine) 2 mg SLOW IVP Q2H PRN PRN Reason: Mild-Moderate Pain (1-5) Last Admin: 04/20/17 14:24 Dose: 2 mg Ondansetron HCl (Zofran) 4 mg IVP Q6H PRN PRN Reason: Nausea/Vomiting Last Admin: 04/20/17 08:34 Dose: 4 mg Promethazine HCl (Phenergan Suppository) 25 mg [place] Q6H PRN PRN Reason: Nausea/Vomiting Last Admin: 04/20/17 04:36 Dose: 25 mg
[2017-04-20] MEDS ORDERED: Sodium Bicarbonate 150 MEQ in D5 1/4 NS 1,000 ML IV SCH (16:00)
[2017-04-20] MEDS: Sodium Bicarbonate 150 MEQ in D5 1/4 NS 1,000 ML IV SCH (19:23)
--- NOTE | 2017-04-20 19:45 | CT ---
ABDOMEN CT WITH AND WITHOUT IV CONTRAST: History: Acute pancreatitis. Comparison: 04-18-17, 09-15-15 FINDINGS: There is again noted to be prominent parapancreatic fat stranding. There are patchy areas of abnormal low attenuation change noted within the pancreatic head, body, and tail of the pancreas. Some of the se are almost a fatty density. There are more prominent than on the prior exam of 2016 and could repr esent some patchy areas of pancreatic necrosis or residual from prior pancreatic necrosis. There is s plenomegaly. There is fatty changes of the liver with some dilatation of the common bile duct and beryl tral hepatic ducts. There are some borderline sized peripancreatic and mesenteric lymph nodes. There is some prominent varices in the left upper quadrant. The port vein is intact. The splenic vein appea rs to be narrowed and may even be occluded but this has a stable appearance from the prior 2016 study . IMPRESSION: Findings of acute and chronic pancreatitis. There are numerous small patchy low attenuation changes w ithin the head, body and tail or the pancreas which are more prominent than on a prior 09-15-15 study suggesting evidence for multiple small areas of pancreatic necrosis or residual from previous necrosi s or residual from previous necrosis. Left upper quadrant varices. Splenomegaly. Fatty changes of th e liver. Common duct dilatation. POS: [facility]
[2017-04-20] MEDS ORDERED: CCU Electrolyte Replacement 1 EACH IVPB ONE (20:09)
[2017-04-20] MEDS ORDERED: Sodium Chloride 0.9% 1,000 ML IV PRN ×4 (20:09)
[2017-04-20] MEDS ORDERED: NS 0.9% w/ 20 MEQ KCL 1,000 ML IV PRN (20:09)
[2017-04-20] MEDS ORDERED: Dextrose 5 %-0.45 % NaCl 1,000 ML IV PRN (20:09)
[2017-04-20] MEDS ORDERED: Magnesium 2 GM/NS 0.9% 100 ML 2 GM in Premix Bag 1 BAG IVPB PRN (20:12)
[2017-04-20] MEDS ORDERED: CCU ELECTROLYTE REPLACEMENT PROTOCOL FS PRN (20:12)
[2017-04-20] MEDS ORDERED: Potassium Chloride 40 MEQ in Sodium Chloride 0.9% 250 ML 250 ML IVPB PRN (20:12)
[2017-04-20] MEDS ORDERED: Potassium Phosphate 12 MMOL in Sodium Chloride 0.9% 250 ML 250 ML IV PRN (20:12)
[2017-04-20] MEDS ORDERED: Magnesium Oxide 400 MG TAB PO PRN ×2 (20:12)
[2017-04-20] MEDS ORDERED: Potassium Phosphate 9 MMOL in Sodium Chloride 0.9% 100 ML IVPB PRN (20:12)
[2017-04-20] MEDS ORDERED: Potassium Phosphate 15 MMOL in Sodium Chloride 0.9% 250 ML 250 ML IV PRN (20:12)
[2017-04-20] MEDS ORDERED: Potassium Chloride 40 MEQ in Premix Bag 1 BAG IVPB PRN (20:12)
[2017-04-20] MEDS ORDERED: Potassium Chloride 20 MEQ TAB PO PRN (20:12)
[2017-04-20] MEDS: Atorvastatin Calcium 40 MG TAB PO SCH (20:36)
[2017-04-20 22:15] LABS: Lactic Acid 1.3 mmol/L (0.5-2.2)
[2017-04-20 22:34] LABS: ALT (SGPT) 38 U/L (8-55); AST (SGOT) 45 U/L (5-34); Albumin 3.5 g/dL (3.5-5.0); Alkaline Phosphatase 192 U/L (40-150); Anion Gap 20 mmol/L (10-20); BUN (Urea Nitrogen) 7 mg/dL (8.9-20.6); Bilirubin, Total 2.4 mg/dL (0.2-1.2); Calc. Creatinine Clearance 174 mL/min (70-130); Calcium 9.3 mg/dL (7.8-10.44); Carbon Dioxide 8 mmol/L (22-29); Chloride 101 mmol/L (98-107); Estimated GFR-MDRD Greater than 90; Globulin 5.5 g/dL (2.4-3.5); Glucose 258 mg/dL (70-105); Potassium 4.3 mmol/L (3.5-5.1); Sodium 125 mmol/L (136-145)
--- NOTE | 2017-04-20 23:31 | PRG ---
DATE OF SERVICE: 04/20/2017 HISTORY OF PRESENT ILLNESS: This is a 31-year-old Latin-[place] male with recurrent pancreatitis. The patient continues to have abdominal pain, although he is receiving morphine every 2 hours. The patient has no nausea or vomiting. The pain is actually over the epigastric area and periumbilical area and going towards the left upper quadrant. The patient's amylase and lipase have been trending down to 134 today. However, he is acidotic today. The bicarbonate was 9 and repeat BMP shows bicarbonate dropping to 8. His potassium is 6.2, mostly acidosis. His BUN is normal at 7. PHYSICAL EXAMINATION: GENERAL: Appears to be in moderate discomfort. VITAL SIGNS: Afebrile, pulse is 106, blood pressure 132/80. CARDIOVASCULAR SYSTEM and LUNGS: Within normal limits. ABDOMEN: Soft and no sign of any rebound or guarding. Abdomen is tender as before. IMPRESSION: 1. Severe acidosis, etiology unclear; does not appear toxic or hypotensive. 2. Hyperkalemia, mostly from acidosis. 3. Recurrent pancreatitis. 4. Thrombus, most likely chronic and acute. RECOMMENDATION: IV bicarbonate, which may help to reduce the potassium level . I believe Dr. Garza is stone gluer and will call for a Nephrology consult because of the severe acidosis. Also, I wish I could do repeat a abdominal CAT scan with contrast because of the unexpected acidosis. ENRRIQUE
[2017-04-21] MEDS: Ketorolac Tromethamine 30 MG/ML VIAL IVP PRN (00:03)
[2017-04-21] MEDS: NS 0.9% w/ 20 MEQ KCL 1,000 ML IV PRN ×2 (01:49→03:55)
[2017-04-21] MEDS: Sodium Bicarbonate 150 MEQ in D5 1/4 NS 1,000 ML IV SCH ×2 (03:51→11:34)
[2017-04-21] MEDS: Morphine 2 MG/ML SYRINGE SLOW IVP PRN ×3 (03:56→20:04)
[2017-04-21] MEDS: Ondansetron HCl/PF 4 MG/2 ML Vial IVP PRN (03:56)
[2017-04-21] MEDS: HYDROcodone/Acetaminophen 10/325 mg Tablet PO PRN ×4 (05:16→20:57)
[2017-04-21 05:27] LABS: ALT (SGPT) 35 U/L (8-55); AST (SGOT) 37 U/L (5-34); Albumin 3.2 g/dL (3.5-5.0); Alkaline Phosphatase 182 U/L (40-150); Anion Gap 18 mmol/L (10-20); BUN (Urea Nitrogen) 5 mg/dL (8.9-20.6); Bilirubin, Total 1.9 mg/dL (0.2-1.2); Calc. Creatinine Clearance 192 mL/min (70-130); Calcium 8.7 mg/dL (7.8-10.44); Carbon Dioxide 11 mmol/L (22-29); Chloride 106 mmol/L (98-107); Estimated GFR-MDRD Greater than 90; Globulin 4.4 g/dL (2.4-3.5); Glucose 184 mg/dL (70-105); Lipase 122 U/L (8-78); Potassium 3.8 mmol/L (3.5-5.1); Protein, Total 7.6 g/dL (6.0-8.3); Sodium 131 mmol/L (136-145)
[2017-04-21] MEDS: D5 1/2 NS w/20 mEq KCL 1,000 ML IV PRN ×2 (05:59→10:08)
[2017-04-21 07:08] LABS: Creatinine, Urine 45.83 mg/dL (63-166)
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
[2017-04-21] MEDS: Gemfibrozil 600 MG TAB PO SCH ×2 (07:49→15:51)
[2017-04-21] MEDS: Levothyroxine Sodium 75 MCG TAB PO SCH (07:49)
[2017-04-21 09:28] LABS: Prothrombin Time 13.2 SEC (12.0-14.7)
[2017-04-21 09:50] LABS: Magnesium 1.8 mg/dL (1.6-2.6)
[2017-04-21 10:06] LABS: Phosphorus Less than 1.0 mg/dL (2.3-4.7)
--- NOTE | 2017-04-21 13:04 | PDOC.PN ---
- Subjective Encounter Start Date: 04/21/17 Encounter Start Time: 13:02 Subjective: feels better. abdominal pain improved,no nausea - Objective MAR Reviewed: Yes Vital Signs & Weight: Vital Signs (12 hours) Temp Pulse Resp BP Pulse Ox 04/21/17 12:00 98.1 F 87 16 130/80 97 04/21/17 11:51 98 04/21/17 08:00 98.2 F 97 16 122/69 98 04/21/17 04:00 98.4 F 101 H 18 138/87 100 Weight Weight 191 lb 2 oz I&O: 04/20/17 04/21/17 04/22/17 06:59 06:59 06:59 Intake Total 2640 4490 1507 Output Total 2600 6271 650 Balance 40 -1785 857 Result Diagrams: 04/20/17 04:59 04/21/17 04:04 Additional Labs: Accuchecks 04/21/17 04/21/17 04/21/17 12:21 11:00 10:08 POC Glucose 210 H 213 H 221 H 04/21/17 04/21/17 04/21/17 09:04 07:54 07:00 POC Glucose 212 H 212 H 207 H 04/21/17 04/21/17 04/21/17 06:01 05:03 03:59 POC Glucose 169 H 155 H 167 H 04/21/17 04/21/17 04/21/17 03:15 02:12 01:13 POC Glucose 201 H 183 H 287 H 04/20/17 04/20/17 04/20/17 23:14 21:46 16:03 POC Glucose 242 H 241 H 240 H Laboratory Tests 04/04/17 04/18/17 04/18/17 06:49 00:07 00:07 PT INR Sodium 117 L* Phosphorus Magnesium Total Bilirubin Less than 1.0 AST 13 Alkaline Phosphatase 107 Triglycerides Greater than 3800 H Cholesterol Lipase 695 H B-Hydroxybutyrate 0.26 04/18/17 04/19/17 04/19/17 02:23 05:15 14:16 PT INR Sodium 137 131 L Phosphorus Magnesium Total Bilirubin 3.3 H AST TNP Alkaline Phosphatase 121 Triglycerides Greater than 3800 H Cholesterol 525 H Lipase 177 H B-Hydroxybutyrate 04/20/17 04/20/17 04/20/17 04:59 12:02 21:46 PT INR Sodium 128 L Phosphorus Magnesium Total Bilirubin 3.3 H 2.4 H AST 54 H 45 H Alkaline Phosphatase 166 H 192 H Triglycerides Cholesterol Lipase 134 H B-Hydroxybutyrate 5.36 H 04/21/17 04/21/17 04/21/17 04:04 09:06 09:06 PT INR Sodium Phosphorus Less than 1.0 L Magnesium 1.8 Total Bilirubin 1.9 H AST 37 H Alkaline Phosphatase 182 H Triglycerides Cholesterol Lipase 122 H B-Hydroxybutyrate 1.39 H 04/21/17 09:06 PT 13.2 INR 1.0 Sodium Phosphorus Magnesium Total Bilirubin AST Alkaline Phosphatase Triglycerides Cholesterol Lipase B-Hydroxybutyrate Phys Exam - Physical Examination Constitutional: NAD HEENT: PERRLA, moist MMs, sclera anicteric, oral pharynx no lesions Neck: no nodes, no JVD, supple, full ROM Respiratory: no wheezing, no rales, no rhonchi, clear to auscultation bilateral Cardiovascular: RRR, no significant murmur Gastrointestinal: soft, non-tender, no distention, positive bowel sounds Musculoskeletal: no edema, pulses present Neurological: non-focal, normal sensation, moves all 4 limbs Psychiatric: normal affect, A&O x 3 Skin: no rash Dx/Plan (1) DKA (diabetic ketoacidoses) Code(s): E13.10 - OTH DIABETES MELLITUS WITH KETOACIDOSIS WITHOUT COMA Status : Acute Qualifiers: Diabetes mellitus type: type 2 Diabetes mellitus complication detail: without coma Qualified Code(s): E11.10 - Type 2 diabetes mellitus with ketoacidosis without coma (2) Acute pancreatitis Code(s): K85.90 - ACUTE PANCREATITIS WITHOUT NECROSIS OR INFECTION, UNSP Status: Acute Comment: due to hyper TG (3) High anion gap metabolic acidosis Code(s): E87.2 - ACIDOSIS Status: Acute (4) Hyponatremia Code(s): E87.1 - HYPO-OSMOLALITY AND HYPONATREMIA Status: Acute Comment: Pseudohyponatremia (5) Splenic vein thrombosis Code(s): I82.890 - ACUTE EMBOLISM AND THROMBOSIS OF OTHER SPECIFIED VEINS Status: Acute (6) Diabetes type 2, uncontrolled Code(s): E11.65 - TYPE 2 DIABETES MELLITUS WITH HYPERGLYCEMIA Status: Chronic (7) Hypertriglyceridemia Code(s): E78.1 - PURE HYPERGLYCERIDEMIA Status: Chronic (8) Hypothyroidism Code(s): E03.9 - HYPOTHYROIDISM, UNSPECIFIED Status: Chronic - Plan out of bed/ambulate, DVT proph w/SCDs Acidosis improving.on DKA protocol.reckeck BMP. -: will switch to SubQ insulin if AG remains close.cont drip for now. -: ? pancreatic necrosis on Ct but Physical exam improved -: likley old finding.defer to GI -: replace and recheck Mag,K,etc. * .cont meds as below. * guarded prognosis Review of Systems - Review of Systems Constitutional: weakness, malaise. negative: fever, chills, sweats, other Respiratory: negative: Cough, Dry, Shortness of Breath, Hemoptysis, SOB with Excertion, Pleuritic Pain, Sputum, Wheezing Cardiovascular: negative: chest pain, palpitations, orthopnea, paroxysmal nocturnal dyspnea, edema, light headedness, other Gastrointestinal: negative: Nausea, Vomiting, Abdominal Pain, Diarrhea, Constipation, Melena, Hematochezia, Other Genitourinary: negative: Dysuria, Frequency, Incontinence, Hematuria, Retention , Other Musculoskeletal: negative: Neck Pain, Shoulder Pain, Arm Pain, Back Pain, Hand Pain, Leg Pain, Foot Pain, Other Neurological: negative: Weakness, Numbness, Incoordination, Change in Speech, Confusion, Seizures, Other - Medications/Allergies Allergies/Adverse Reactions: Allergies Allergy/AdvReac Type Severity Reaction Status Date / Time fluoxetine HCl [From Prozac] Allergy Unknown Verified 06/20/15 03:23 heparin Allergy Verified 02/22/15 17:25 Medications: Current Medications Acetaminophen (Tylenol) 650 mg PO Q4H PRN PRN Reason: Headache/Fever or Pain Hydrocodone Bitart/Acetaminophen ([place] 10/325) 1 tab PO Q4H PRN PRN Reason: Mild-Moderate Pain (1-5) Last Admin: 04/21/17 10:09 Dose: 1 tab Atorvastatin Calcium (Lipitor) 80 mg PO HS HENRY Last Admin: 04/20/17 20:36 Dose: 80 mg Bisacodyl (Dulcolax) 10 mg PO DAILYPRN PRN PRN Reason: Constipation Dextrose/Water (Dextrose 50%) 25 gm SLOW IVP PRN PRN PRN Reason: Hypoglycemia Gemfibrozil (Lopid) 600 mg PO BIDAC HENRY Last Admin: 04/21/17 07:49 Dose: 600 mg Glucagon (Glucagon) 1 mg IM PRN PRN PRN Reason: Hypoglycemia Hydralazine HCl (Apresoline) 10 mg SLOW IVP Q6H PRN PRN Reason: SBP Greater Than 170 Last Admin: 04/18/17 14:25 Dose: 10 mg Dextrose/Water (D5w) 1,000 mls @ 0 mls/hr IV .Q0M PRN; As Directed PRN Reason: Hypoglycemia Dextrose/Sodium Chloride (D5 1/2 Ns) 1,000 mls @ 250 mls/hr IV .Q4H PRN; Protocol PRN Reason: Step 4 of DKA Protocol Potassium Chloride/Dextrose/Sod Cl (D5 1/2 Ns W/20 Meq Kcl) 1,000 mls @ 250 mls /hr IV .Q4H PRN; Protocol PRN Reason: Step 4 of DKA Protocol Last Admin: 04/21/17 10:08 Dose: 1,000 mls Insulin Human Regular 100 (units/ Sodium Chloride) 101 mls @ 0 mls/hr IVPB INF HENRY; Titrate PRN Reason: Protocol Last Admin: 04/21/17 00:19 Dose: 101 mls Sodium Chloride (Normal Saline 0.9%) 1,000 mls @ 500 mls/hr IV .Q2H PRN; Protocol PRN Reason: Step 1 of DKA Protocol Last Admin: 04/21/17 00:16 Dose: 1,000 mls Sodium Chloride (Normal Saline 0.9%) 1,000 mls @ 1,000 mls/hr IV .Q1H PRN; Protocol PRN Reason: Step 1 of DKA Protocol Sodium Chloride (Normal Saline 0.9%) 1,000 mls @ 250 mls/hr IV .Q4H PRN; Protocol PRN Reason: SEE STEP 3 OF DKA PROTOCOL Sodium Chloride (Normal Saline 0.9%) 1,000 mls @ 500 mls/hr IV .Q2H PRN; Protocol PRN Reason: Step 2 of DKA Protocol Potassium Chloride/Sodium Chloride (Ns 0.9% W/ 20 Meq Kcl) 1,000 mls @ 500 mls/ hr IV .Q2H PRN; Protocol PRN Reason: Step 2 of DKA Protocol Last Admin: 04/21/17 03:55 Dose: 1,000 mls Potassium Chloride/Sodium Chloride (Ns 0.9% W/ 20 Meq Kcl) 1,000 mls @ 250 mls/ hr IV .Q4H PRN; Protocol PRN Reason: SEE STEP 3 OF DKA PROTOCOL Potassium Chloride 40 meq/ (Sodium Chloride) 270 mls @ 135 mls/hr IVPB ASDIR PRN PRN Reason: FOR SERUM K+ 2.5 - 3.5 Potassium Chloride 40 meq/ (Device) 100 mls @ 50 mls/hr IVPB ASDIR PRN PRN Reason: FOR SERUM K+ 2.5 - 3.5 Magnesium Sulfate 1 gm/ Sodium (Chloride) 102 mls @ 102 mls/hr IV PRN PRN PRN Reason: MAG LEVEL 1.4 - 2.0 Magnesium Sulfate 2 gm/ Device 100 mls @ 100 mls/hr IVPB ASDIR PRN PRN Reason: MAGNESIUM < 1.4 Potassium Phosphate 9 mmol/ (Sodium Chloride) 103 mls @ 25.75 mls/hr IVPB ASDIR PRN PRN Reason: Phosphate 1.0-1.8 Potassium Phosphate 12 mmol/ (Sodium Chloride) 254 mls @ 63.5 mls/hr IV ASDIR PRN PRN Reason: Serum phosphate 0.5-0.9 Potassium Phosphate 15 mmol/ (Sodium Chloride) 255 mls @ 63.75 mls/hr IV ASDIR PRN PRN Reason: Serum Phos < 0.5 Sodium Phosphate 40 mmol/ (Sodium Chloride) 513.3333 mls @ 64.167 mls/hr IVPB NOW HENRY Stop: 04/21/17 20:44 Potassium Phosphate 9 mmol/ (Sodium Chloride) 103 mls @ 25 mls/hr IVPB [facility] Insulin Human Lispro (Humalog) 0 units SC .MILD SLIDING SCALE PRN PRN Reason: Mild Correctional Scale Last Admin: 04/20/17 16:47 Dose: 4 unit Ketorolac Tromethamine (Toradol) 15 mg IVP Q6H PRN PRN Reason: Moderate Pain (4-6) Stop: 04/23/17 20:19 Last Admin: 04/21/17 00:03 Dose: 15 mg Levothyroxine Sodium (Synthroid) 75 mcg PO DAILY HENRY Last Admin: 04/21/17 07:49 Dose: 75 mcg Magnesium Oxide (Magnesium Oxide) 400 mg PO BIDPRN PRN PRN Reason: FOR SERUM MAG 1.4 - 2.0 Magnesium Oxide (Magnesium Oxide) 800 mg PO PRN PRN PRN Reason: FOR SERUM MAG < 1.4 Miscellaneous Medication (Phos-Nak) 1 pkt PO TIDPRN PRN PRN Reason: FOR PHOS LEVEL 1.0 - 1.8 Miscellaneous Medication (Phos-Nak) 2 pkt PO TIDPRN PRN PRN Reason: FOR PHOS LEVEL 0.5 - 1.0 Morphine Sulfate (Morphine) 2 mg SLOW IVP Q2H PRN PRN Reason: Mild-Moderate Pain (1-5) Last Admin: 04/21/17 05:58 Dose: 2 mg Ccu Electrolyte (Replacement Protocol) 0 each FS PRN PRN PRN Reason: FOR ELECTROLYTE REPLACEMENT Ondansetron HCl (Zofran) 4 mg IVP Q6H PRN PRN Reason: Nausea/Vomiting Last Admin: 04/21/17 03:56 Dose: 4 mg Potassium Chloride (K-Dur) 40 meq PO ASDIR PRN PRN Reason: FOR SERUM K+ 2.5 - 3.5 Potassium Chloride (Klor-Con) 40 meq PER TUBE ASDIR PRN PRN Reason: FOR SERUM K+ 2.5-3.5 Promethazine HCl (Phenergan Suppository) 25 mg DC Q6H PRN PRN Reason: Nausea/Vomiting Last Admin: 04/20/17 04:36 Dose: 25 mg
[2017-04-21] MEDS ORDERED: Potassium Phosphate 9 MMOL in Sodium Chloride 0.9% 100 ML IVPB SCH (13:30)
[2017-04-21 14:16] LABS: Anion Gap 13 mmol/L (10-20); BUN (Urea Nitrogen) Less than 4 mg/dL (8.9-20.6); Calc. Creatinine Clearance 213 mL/min (70-130); Calcium 8.4 mg/dL (7.8-10.44); Carbon Dioxide 15 mmol/L (22-29); Chloride 103 mmol/L (98-107); Estimated GFR-MDRD Greater than 90; Glucose 219 mg/dL (70-105); Potassium 3.6 mmol/L (3.5-5.1); Sodium 127 mmol/L (136-145)
--- NOTE | 2017-04-21 14:16 | PRG ---
DATE OF SERVICE: 04/21/2017 SUBJECTIVE: Mr. Clifton Puga is a 31-year-old male with diabetes mellitus, hyperlip idemia. The patient has had recurrent pancreatitis over the years. It was felt to be due to hyperli pidemia. The patient also had a laparoscopic cholecystectomy in 2016 for biliary sludge. The patien t began feeling acidotic yesterday. He has been seen by Nephrology, and ordered bicarbonate infusion . The patient received the intravenous emergency unit late yesterday. Today, he appears very comfor table. He denies abdominal pain or any nausea. He says he is passing flatus. He was having severe pain until yesterday, but today he says he is actually feeling better. Actually he wants to eat toda y. PHYSICAL EXAMINATION: GENERAL: Appears comfortable. VITAL SIGNS: Temperature 98.2 degrees Fahrenheit. Pulse is 97, blood pressure is 122/69. CARDIOVASCULAR/LUNGS: Within normal limits. ABDOMEN: Soft. Surprisingly abdomen is nontender on palpation over the epigastric area and left upp er quadrant. He has active bowel sounds. The patient had imaging of the abdomen yesterday. Abdominal CAT scan shows the patient appears to jimenez ve pancreatic necrosis, appears more than the first CAT scan. CLINICAL IMPRESSION: Recurrent pancreatitis, seems to be resolving biochemically. He was really sym ptomatic until yesterday, but today he is actually feeling better. The labs are pending today. RECOMMENDATIONS: I would keep him n.p.o. 1 more day to be sure that the pain does return. If he is pain free, start clear liquid diet from tomorrow morning and advance diet as tolerated. Also, recomm end follow up labs.
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
[2017-04-21] MEDS: Atorvastatin Calcium 40 MG TAB PO SCH (20:04)
[2017-04-21 20:18] LABS: Anion Gap 15 mmol/L (10-20); BUN (Urea Nitrogen) Less than 4 mg/dL (8.9-20.6); Calc. Creatinine Clearance 203 mL/min (70-130); Calcium 8.6 mg/dL (7.8-10.44); Carbon Dioxide 17 mmol/L (22-29); Chloride 102 mmol/L (98-107); Estimated GFR-MDRD Greater than 90; Glucose 240 mg/dL (70-105); Phosphorus 2.3 mg/dL (2.3-4.7); Potassium 3.5 mmol/L (3.5-5.1); Sodium 130 mmol/L (136-145)
[2017-04-21] MEDS: HumaLOG 300 UNITS/3 ML VIAL SC PRN (20:57)
--- NOTE | 2017-04-21 22:23 | PRG ---
DATE OF SERVICE: 04/21/2017 SUBJECTIVE: Patient was seen and examined at bedside and overnight events noted. Patient denies any shortness of breath or chest pain or palpitation. No history of nausea or vomiting or diarrhea or f ever or chills or cramps. OBJECTIVE: GENERAL: This is an obese male in no apparent distress. VITAL SIGNS: Temperature 97, pulse 80, respiratory rate 18, blood pressure 124/87. HEENT: Atraumatic, normocephalic, oral mucosa is moist. NECK: Supple. CARDIOVASCULAR: S1, S2 heard, rate and rhythm regular. RESPIRATORY: Clear to auscultation. GASTROINTESTINAL: Abdomen is soft. MUSCULOSKELETAL: No tenderness, no edema. DERMATOLOGIC: No skin rash. NEUROLOGIC: Alert and awake and oriented x3, no focal neurologic deficits. Moving all the extremiti es. PSYCHIATRIC: Mood and affect normal. LABORATORY DATA: Potassium is 3.6, BUN is less than 4, creatinine 0.6, sodium is 127. ASSESSMENT AND PLAN: 1. Severe acidosis, getting better, most likely from diabetic ketoacidosis. The patient is feeling better, also continue on IV fluids, diabetic ketoacidosis protocol. 2. Hyperkalemia, better. 3. Hyponatremia. 4. Recurrent pancreatitis. 5. Hypertriglyceridemia. Lactate level is normal. Continue diabetic ketoacidosis protocol. I will sign off, please call back with any questions.
[2017-04-21] MEDS: Morphine 2 mg/2ml in 0.9% NaCl PF SYRINGE SLOW IVP PRN (23:38)
[2017-04-22] MEDS: Morphine 2 mg/2ml in 0.9% NaCl PF SYRINGE SLOW IVP PRN (02:36)
[2017-04-22] MEDS: D5 1/2 NS w/20 mEq KCL 1,000 ML IV PRN (02:36)
[2017-04-22] MEDS: HYDROcodone/Acetaminophen 10/325 mg Tablet PO PRN ×2 (05:41→17:01)
[2017-04-22 06:34] LABS: ALT (SGPT) 40 U/L (8-55); AST (SGOT) 56 U/L (5-34); Alkaline Phosphatase 219 U/L (40-150); Anion Gap 18 mmol/L (10-20); BUN (Urea Nitrogen) Less than 4 mg/dL (8.9-20.6); Bilirubin, Total 1.7 mg/dL (0.2-1.2); Calc. Creatinine Clearance 228 mL/min (70-130); Carbon Dioxide 13 mmol/L (22-29); Chloride 101 mmol/L (98-107); Estimated GFR-MDRD Greater than 90; Globulin 3.8 g/dL (2.4-3.5); Glucose 232 mg/dL (70-105); Lipase 98 U/L (8-78); Potassium 3.9 mmol/L (3.5-5.1); Protein, Total 6.8 g/dL (6.0-8.3); Sodium 128 mmol/L (136-145)
[2017-04-22] MEDS: HumaLOG 300 UNITS/3 ML VIAL SC PRN ×4 (07:13→20:23)
[2017-04-22 07:23] LABS: #Eosinphils 0.1 thou/uL (0.0-0.7); #Monocytes 0.4 thou/uL (0.11-0.59); #Neutrophils 1.8 thou/uL (1.40-6.50); %Basophils 0.1 % (0.0-1.0); %Eosinophils 3.7 % (0.0-10.0); %Lymphocytes 30.3 % (21.0-51.0); %Monocytes 11.7 % (0.0-10.0); %Neutrophils 54.2 % (42.0-75.0); Hemoglobin 12.5 g/dL (14.0-18.0); Mean Corpuscular HGB CONC 32.4 g/dL (32.0-36.0); Mean Corpuscular Hemoglobin 27.8 pg (27.0-31.0); Mean Corpuscular Volume 85.7 fl (80.0-94.0); Mean Platelet Volume 10.8 fL (7.4-10.4); PLT Morphology Comment Appears Decreased; Platelet Count 87 thou/uL (130-400); RBC Distribution Width 13.9 % (11.5-14.5); RBC Morphology Normal; Red Blood Cell (RBC) Count 4.49 mill/uL (4.70-6.10); White Blood Cell (WBC) Count 3.3 thou/uL (4.8-10.8)
[2017-04-22] MEDS: Gemfibrozil 600 MG TAB PO SCH ×2 (08:39→16:57)
[2017-04-22] MEDS: Levothyroxine Sodium 75 MCG TAB PO SCH (08:39)
[2017-04-22 09:40] VITALS: BMI 31.8
--- NOTE | 2017-04-22 10:15 | PRG ---
DATE OF SERVICE: 04/22/2017 SUBJECTIVE: Patient was seen and examined at bedside and overnight events noted. Patient denies any shortness of breath or chest pain or palpitation. No history of nausea or vomiting or diarrhea or f ever or chills or cramps. OBJECTIVE: GENERAL: This is a well-built white male in no apparent distress. VITAL SIGNS: Temperature 98.1, pulse 83, respiratory rate 18, blood pressure 134/83. HEENT: Atraumatic, normocephalic. Oral mucosa is moist. NECK: Supple. CARDIOVASCULAR: S1, S2 heard. Rate and rhythm regular. RESPIRATORY: Clear to auscultation. GASTROINTESTINAL: Abdomen is soft. MUSCULOSKELETAL: No tenderness. No edema. DERMATOLOGIC: No skin rash. NEUROLOGIC: Alert and awake and oriented x3. No focal neurologic deficits. Moving all the extremiti es. PSYCHIATRIC: Mood and affect normal. LABORATORY DATA: Potassium is 3.9, sodium 128, BUN is less than 4, creatinine 0.5. ASSESSMENT AND PLAN: 1. Severe acidosis, better, but still bicarbonate levels are low. We will recommend bicarbonate sup plementation as tolerated. 2. Hyperkalemia, better and monitor potassium closely. 3. Hyponatremia. 4. Recurrent pancreatitis. 5. Hypertriglyceridemia. 6. Obesity. We would recommend adding bicarbonate to IV fluids as tolerated. We will follow.
--- NOTE | 2017-04-22 10:56 | PRG ---
DATE OF SERVICE: 04/22/2017 GI INPATIENT DAILY PROGRESS NOTE SUBJECTIVE: Mr. Puga says he is feeling hungry today. He has a bit of queasiness in the stomach, but he describes it not as nausea. He has had no vomiting. He has been passing a lot of gas. No ab dominal pain this morning. He is wanting to advance his diet if possible. PHYSICAL EXAMINATION: VITAL SIGNS: Temperature 98.1, pulse 83, blood pressure 134/83, 94% oxygen saturation on room air. GENERAL: No acute distress, sitting up in a chair comfortably. HEART: Regular rate and rhythm. LUNGS: Clear to auscultation bilaterally. ABDOMEN: Bowel sounds present, but hypoactive, soft, nontender to palpation. EXTREMITIES: No peripheral edema. LABORATORY STUDIES: WBC 3.3, hemoglobin 12.5, platelets 87. INR 1.0. Sodium 128, potassium 3.9, bi carbonate 13, chloride 101, BUN less than 4, creatinine 0.57, total bilirubin 1.7, alkaline phosphata se 219, AST 56, ALT 40, lipase down to 98. Beta hydroxybutyrate was 1.39 yesterday. Triglycerides o n admission were greater than 3800. ASSESSMENT AND PLAN: 1. Recurrent acute pancreatitis, clinically improving. 2. Hypertriglyceridemia. The patient's acute episode of pancreatitis appears to be resolving. At this point, we will start hi m on clear liquid diet. This can be advanced as tolerated to a diabetic diet if he continues to do w ell clinically. Regarding his chronic hypertriglyceridemia, this is likely the driving factor behind his recurrent episodes of pancreatitis. Triglycerides are quite elevated upon admission. He is alr caleb on fenofibrate and insulin. This is all being adjusted as an outpatient. He is going to start making some positive changes in his diet as well.
[2017-04-22] MEDS: Atorvastatin Calcium 40 MG TAB PO SCH (20:22)
[2017-04-23] MEDS: Ketorolac Tromethamine 30 MG/ML VIAL IVP PRN (02:57)
[2017-04-23 05:48] LABS: Anion Gap 16 mmol/L (10-20); BUN (Urea Nitrogen) 5 mg/dL (8.9-20.6); Calc. Creatinine Clearance 236 mL/min (70-130); Calcium 9.5 mg/dL (7.8-10.44); Carbon Dioxide 21 mmol/L (22-29); Chloride 98 mmol/L (98-107); Estimated GFR-MDRD Greater than 90; Glucose 259 mg/dL (70-105); Potassium 3.5 mmol/L (3.5-5.1); Sodium 131 mmol/L (136-145)
[2017-04-23] MEDS: HumaLOG 300 UNITS/3 ML VIAL SC PRN ×4 (06:26→20:37)
[2017-04-23] MEDS: HYDROcodone/Acetaminophen 10/325 mg Tablet PO PRN ×2 (07:53→20:37)
[2017-04-23] MEDS: Gemfibrozil 600 MG TAB PO SCH ×2 (08:00→15:31)
[2017-04-23] MEDS: Levothyroxine Sodium 75 MCG TAB PO SCH (08:00)
--- NOTE | 2017-04-23 15:14 | PDOC.PN ---
- Subjective Encounter Start Date: 04/23/17 Encounter Start Time: 15:12 Subjective: Pt seen and examined for acute pancreatitis -: Tolrating full liquid - Objective MAR Reviewed: Yes Vital Signs & Weight: Vital Signs (12 hours) Temp Pulse Resp BP Pulse Ox 04/23/17 12:19 98.5 F 88 18 144/86 H 95 04/23/17 08:51 98.5 F 85 18 130/87 95 04/23/17 08:00 98.5 F 85 18 Weight Admit Weight 200 lb Weight 191 lb I&O: 04/22/17 04/23/17 04/24/17 06:59 06:59 06:59 Intake Total 2891 800 Output Total 1350 1000 Balance 1541 -200 Result Diagrams: 04/22/17 05:39 04/23/17 03:26 Additional Labs: Accuchecks 04/23/17 04/23/17 04/22/17 11:41 06:10 20:21 POC Glucose 318 H 237 H 259 H 04/22/17 16:51 POC Glucose 235 H Phys Exam - Physical Examination Neck: no nodes, no JVD, supple, full ROM Respiratory: no wheezing, no rales, no rhonchi, wheezing present, clear to auscultation bilateral Cardiovascular: RRR, no significant murmur, no rub, gallop, irregular Gastrointestinal: soft, no distention, positive bowel sounds tenderness left lower abdomen Musculoskeletal: no edema, pulses present, edema present Neurological: non-focal, normal sensation, moves all 4 limbs Psychiatric: normal affect, A&O x 3 Dx/Plan - Plan Acute Pancreatitis sec to Hypertriglyceremia -: zero Fat diet -: Advance diet as tolerated * .
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
[2017-04-23] MEDS: Atorvastatin Calcium 40 MG TAB PO SCH (20:36)
[2017-04-24] MEDS: HYDROcodone/Acetaminophen 10/325 mg Tablet PO PRN (01:33)
[2017-04-24] MEDS: HumaLOG 300 UNITS/3 ML VIAL SC PRN ×4 (04:17→20:36)
[2017-04-24 04:40] LABS: Anion Gap 17 mmol/L (10-20); BUN (Urea Nitrogen) 8 mg/dL (8.9-20.6); Calc. Creatinine Clearance 220 mL/min (70-130); Calcium 9.7 mg/dL (7.8-10.44); Carbon Dioxide 23 mmol/L (22-29); Chloride 96 mmol/L (98-107); Estimated GFR-MDRD Greater than 90; Glucose 378 mg/dL (70-105); Potassium 3.9 mmol/L (3.5-5.1); Sodium 132 mmol/L (136-145)
--- NOTE | 2017-04-24 06:14 | PRG ---
DATE OF SERVICE: 04/23/2017 SUBJECTIVE: Patient was seen and examined at bedside and overnight events noted. Patient denies any shortness of breath or chest pain or palpitation. No history of nausea or vomiting or diarrhea or f ever or chills or cramps. OBJECTIVE: GENERAL: This is a well-built male, in no apparent distress. VITAL SIGNS: Temperature 97.7, pulse 82, respiratory rate 18, blood pressure 113/78. HEENT: Atraumatic, normocephalic. Oral mucosa is moist. NECK: Supple. CARDIOVASCULAR: S1 and S2 heard. Rate and rhythm regular. RESPIRATORY: Clear to auscultation. GASTROINTESTINAL: Abdomen is soft. MUSCULOSKELETAL: No tenderness. No edema. DERMATOLOGIC: No skin rash. NEUROLOGIC: Alert and awake and oriented x3. No focal neurologic deficits. Moving all the extremit ies. PSYCHIATRIC: Mood and affect normal. LABORATORY DATA: Potassium is 3.5, bicarbonate is 21. BUN is 5, creatinine 0.5. ASSESSMENT AND PLAN: 1. Severe acidosis, much better. Creatinine and bicarbonate supplement as tolerated. 2. Hyperkalemia, better. Limit potassium . 3. Hypertriglyceridemia. 4. Obesity. 5. Hyponatremia. 6. Renal function test, much better. 7. Acidosis, better. We will sign off. Please call back with any questions.
[2017-04-24] MEDS: Levothyroxine Sodium 75 MCG TAB PO SCH (08:43)
[2017-04-24] MEDS: Gemfibrozil 600 MG TAB PO SCH ×2 (08:43→17:15)
[2017-04-24] MEDS ORDERED: traZODone HCl 150 MG TAB PO PRN (09:59)
[2017-04-24] MEDS ORDERED: Dextrose 5% in Water 1,000 ML IV PRN (10:02)
[2017-04-24] MEDS ORDERED: Dextrose 50% Abboject 50 ML SYRINGE SLOW IVP PRN (10:02)
--- NOTE | 2017-04-24 10:05 | PDOC.PN ---
- Subjective Encounter Start Date: 04/24/17 Encounter Start Time: 10:03 Subjective: Seen and examined with no new complaint - Objective Vital Signs & Weight: Vital Signs (12 hours) Temp Pulse Resp BP Pulse Ox 04/24/17 08:00 97.7 F 92 20 145/97 H 95 04/24/17 04:08 97.6 F 83 20 136/85 95 04/24/17 00:00 97.8 F 84 16 141/96 H 96 Weight Admit Weight 200 lb Weight 191 lb I&O: 04/23/17 04/24/17 04/25/17 06:59 06:59 06:59 Intake Total 800 2388 Output Total 1000 700 Balance -200 1688 Result Diagrams: 04/22/17 05:39 04/24/17 03:44 Additional Labs: Accuchecks 04/24/17 04/23/17 04/23/17 04:15 20:36 16:30 POC Glucose 339 H 300 H 351 H 04/23/17 11:41 POC Glucose 318 H Phys Exam - Physical Examination Constitutional: NAD HEENT: PERRLA, moist MMs, sclera anicteric, TM's clear Neck: no nodes, no JVD, supple, full ROM Respiratory: no wheezing, no rhonchi, clear to auscultation bilateral Cardiovascular: RRR, no significant murmur, no rub Gastrointestinal: soft, non-tender, no distention, positive bowel sounds Musculoskeletal: no edema, pulses present Dx/Plan (1) DKA (diabetic ketoacidoses) Code(s): E13.10 - OTH DIABETES MELLITUS WITH KETOACIDOSIS WITHOUT COMA Status : Acute Qualifiers: Diabetes mellitus type: type 2 Diabetes mellitus complication detail: without coma Qualified Code(s): E11.10 - Type 2 diabetes mellitus with ketoacidosis without coma (2) High anion gap metabolic acidosis Code(s): E87.2 - ACIDOSIS Status: Acute (3) Hyponatremia Code(s): E87.1 - HYPO-OSMOLALITY AND HYPONATREMIA Status: Acute Comment: Pseudohyponatremia (4) Splenic vein thrombosis Code(s): I82.890 - ACUTE EMBOLISM AND THROMBOSIS OF OTHER SPECIFIED VEINS Status: Acute (5) Acute pancreatitis Code(s): K85.90 - ACUTE PANCREATITIS WITHOUT NECROSIS OR INFECTION, UNSP Status: Acute Comment: due to hyper TG (6) Hyperglycemia due to type 2 diabetes mellitus Code(s): E11.65 - TYPE 2 DIABETES MELLITUS WITH HYPERGLYCEMIA Status: Acute (7) Thrombocytopenia Code(s): D69.6 - THROMBOCYTOPENIA, UNSPECIFIED Status: Acute (8) Anxiety and depression Code(s): F41.9 - ANXIETY DISORDER, UNSPECIFIED; F32.9 - MAJOR DEPRESSIVE DISORDER, SINGLE EPISODE, UNSPECIFIED Status: Chronic - Plan plan discussed w/ family, PT/OT, licensed social worker D/c insulin gtt -: start scheduled insulin -: Hold metformin for now -: D/c IVF--dispo planning -: Tryglycerides treatment * .
[2017-04-24] MEDS ORDERED: INSULIN DETEMIR SC SCH (11:15)
[2017-04-24] MEDS ORDERED: metFORMIN 500 MG TAB PO SCH (16:30)
--- NOTE | 2017-04-24 18:41 | PRG ---
DATE OF SERVICE: 04/24/2017 SUBJECTIVE: Mr. Puga is without complaints. He is back to regular diet. He states he was started on his regular insulin. MEDICATIONS: Atorvastatin, Tegretol, nifedipine, gemfibrozil, glucagon p.r.n. Apresoline p.r.n., Nor co p.r.n., Humalog sliding scale p.r.n., levothyroxine 75 mcg daily, lisinopril 10 mg daily, morphine p.r.n., Paxil 20 mg daily, trazodone 50 mg daily, promethazine 25 mg daily. OBJECTIVE: VITAL SIGNS: Temperature 98, pulse 78, blood pressure 122/77. LUNGS: Clear. HEART: Regular rate and rhythm. ABDOMEN: Soft, nontender. LABORATORY STUDIES: Glucose runs in the mid to high 300s. No other labs done in the past 24-48 hour s. ASSESSMENT: 1. Pancreatitis related to severe hypertriglyceridemia. 2. Hypertriglyceridemia, probably a component and also related to poor glucose control. RECOMMENDATIONS: 1. Strict control of diabetes will help control the triglycerides. The patient will also probably n eed medicine directed at hypertriglyceridemia. 2. Low fat diet, advance as tolerated with regard to patient's pancreatitis. 3. Pancreatic lesion seen on the CT. These are consistent with previous CAT scans likely small area s of pancreatic necrosis and pseudocyst that was seen 08/2015 as well. At this time, we will sign of f of. If I can be of any further assistance in the patient's care, please do not hesitate to recons ult.
[2017-04-24] MEDS: carBAMazepine 200 MG TAB PO SCH (20:35)
[2017-04-24] MEDS: Atorvastatin Calcium 40 MG TAB PO SCH (20:35)
[2017-04-24] MEDS: INSULIN DETEMIR SC SCH (20:36)
[2017-04-24] MEDS ORDERED: INSULIN GLARGINE HUM REC ANLOG 40 UNIT SQ SCH (21:00)
[2017-04-25 04:57] LABS: Anion Gap 19 mmol/L (10-20); BUN (Urea Nitrogen) 11 mg/dL (8.9-20.6); Calc. Creatinine Clearance 203 mL/min (70-130); Calcium 9.9 mg/dL (7.8-10.44); Carbon Dioxide 22 mmol/L (22-29); Chloride 95 mmol/L (98-107); Estimated GFR-MDRD Greater than 90; Glucose 342 mg/dL (70-105); Potassium 3.8 mmol/L (3.5-5.1); Sodium 132 mmol/L (136-145)
[2017-04-25] MEDS: HumaLOG 300 UNITS/3 ML VIAL SC PRN ×4 (05:14→20:09)
[2017-04-25] MEDS ORDERED: Levothyroxine Sodium 75 MCG TAB PO SCH (06:00)
[2017-04-25] MEDS: Gemfibrozil 600 MG TAB PO SCH ×2 (08:11→16:45)
[2017-04-25] MEDS: INSULIN DETEMIR SC SCH (08:11)
[2017-04-25] MEDS: carBAMazepine 200 MG TAB PO SCH ×2 (08:11→20:08)
[2017-04-25] MEDS ORDERED: PARoxetine 20 MG TAB PO SCH (09:00)
[2017-04-25] MEDS ORDERED: Lisinopril 10 MG TAB PO SCH (09:00)
--- NOTE | 2017-04-25 18:40 | PDOC.PN ---
- Subjective Encounter Start Date: 04/25/17 Encounter Start Time: 18:40 Subjective: Seen and examined feeling better but the blood sugar is still out of contro - Objective Vital Signs & Weight: Vital Signs (12 hours) Temp Pulse Resp BP Pulse Ox 04/25/17 08:00 97.6 F 80 20 125/80 96 Weight Admit Weight 200 lb Weight 191 lb I&O: 04/24/17 04/25/17 04/26/17 06:59 06:59 06:59 Intake Total 2388 2085 1000 Output Total 700 500 Balance 1688 1585 1000 Result Diagrams: 04/22/17 05:39 04/25/17 03:24 Additional Labs: Accuchecks 04/25/17 04/25/17 04/25/17 15:50 10:54 05:14 POC Glucose 378 H 351 H 291 H 04/24/17 04/24/17 20:35 16:52 POC Glucose 353 H 317 H Phys Exam - Physical Examination Constitutional: NAD HEENT: PERRLA, moist MMs, sclera anicteric, TM's clear Neck: no nodes, no JVD, supple, full ROM Respiratory: no wheezing, no rales, no rhonchi, clear to auscultation bilateral Cardiovascular: RRR, no significant murmur, no rub Gastrointestinal: soft, non-tender, no distention, positive bowel sounds Dx/Plan (1) DKA (diabetic ketoacidoses) Code(s): E13.10 - OTH DIABETES MELLITUS WITH KETOACIDOSIS WITHOUT COMA Status : Acute Qualifiers: Diabetes mellitus type: type 2 Diabetes mellitus complication detail: without coma Qualified Code(s): E11.10 - Type 2 diabetes mellitus with ketoacidosis without coma (2) High anion gap metabolic acidosis Code(s): E87.2 - ACIDOSIS Status: Acute (3) Hyponatremia Code(s): E87.1 - HYPO-OSMOLALITY AND HYPONATREMIA Status: Acute Comment: Pseudohyponatremia (4) Splenic vein thrombosis Code(s): I82.890 - ACUTE EMBOLISM AND THROMBOSIS OF OTHER SPECIFIED VEINS Status: Acute (5) Acute pancreatitis Code(s): K85.90 - ACUTE PANCREATITIS WITHOUT NECROSIS OR INFECTION, UNSP Status: Acute Comment: due to hyper TG (6) Hyperglycemia due to type 2 diabetes mellitus Code(s): E11.65 - TYPE 2 DIABETES MELLITUS WITH HYPERGLYCEMIA Status: Acute (7) Thrombocytopenia Code(s): D69.6 - THROMBOCYTOPENIA, UNSPECIFIED Status: Acute (8) Anxiety and depression Code(s): F41.9 - ANXIETY DISORDER, UNSPECIFIED; F32.9 - MAJOR DEPRESSIVE DISORDER, SINGLE EPISODE, UNSPECIFIED Status: Chronic - Plan PT/OT, geriatric social worker Increase the insulin dose -: d/c once blood sugar is better controlled or improved at least * .
[2017-04-25] MEDS: Atorvastatin Calcium 40 MG TAB PO SCH (20:08)
[2017-04-25 20:14] VITALS: BP 121/80; TEMP 98.3
[2017-04-25] MEDS ORDERED: INSULIN DETEMIR SC SCH (21:00)
--- NOTE | 2017-04-29 11:41 | DIS ---
For details of the history and physical and consultative notes, please refer to dictations on record. SUMMARY: This is a 31-year-old gentleman who presented here with features of diabetic ketoacidosis a s well as acute pancreatitis more or less recurrent in nature. Patient was seen by various consultan ts including Nephrology, Pulmonary and Critical Care Service, Gastroenterology Service. Patient man aged conservatively with n.p.o. and eventually transitioned to oral diet intake. Patient counseled e xtensively and need to stay compliant with medications and patient spends several days in the [facility] and having maintained sustained clinical improvement was subsequently discharged on the following m edications. MEDICATIONS: Augmentin 875/125 p.o. b.i.d., Tegretol 600 mg p.o. b.i.d., Neurontin 800 mg p.o. t.i.d ., Lopid 600 mg p.o. b.i.d., insulin 40 units subcutaneously b.i.d., Synthroid 75 mcg p.o. daily, lis inopril 10 mg p.o. daily, metformin 1000 mg p.o. b.i.d., Pamelor 10/30 mg p.o. at bedtime, Paxil 20 m g p.o. daily, trazodone 50 mg p.o. at bedtime p.r.n. DIAGNOSES DURING THIS HOSPITALIZATION: Include the following, 1. Diabetic ketoacidosis. 2. High anion gap metabolic acidosis. 3. Hyponatremia. 4. Splenic vein thrombosis. 5. Acute pancreatitis. DISCHARGE INSTRUCTIONS: 1. Follow up with the primary care physician. 2. Stay compliant with medications. 3. Represent here in case of any relapse or deterioration in clinical condition. Total time spent including [id number] encounter with this patient total 30 minutes.
--- NOTE | 2017-05-23 14:57 | ADD-CON ---
ADDENDUM DATE OF CONSULTATION: 04/21/2016 TIME SPENT: 70 minutes of time was spent at the bedside and/or on the patient's floor for this consu ltation. There were no significant radiological films to review.
--- NOTE | 2017-05-24 15:23 | EKG ---
Test Reason : Blood Pressure : / mmHG Vent. Rate : 090 BPM Atrial Rate : 090 BPM P-R Int : 166 ms QRS Dur : 090 ms QT Int : 346 ms P-R-T Axes : 025 -32 051 degrees QTc Int : 423 ms Normal sinus rhythm Left axis deviation Abnormal ECG Confirmed by EUGENE HENRIQUEZ, FARRAH ([id number]), deputy editor in chief SVEN MENA ([id number]) on 05/24/2017 3:22:48 PM Referred By: Confirmed By:FARRAH KNIGHT MD
== END 2017-04-25 20:41 | disposition left against medical advice (07) | DRG 438 ==
LOC: ERS 23:27 → ERHOLD 04-18 03:46 → SURG A 04-18 12:58 → IMCU/EMU 04-20 23:44 → T4-B 04-21 22:25
PROVIDERS: ADMIT Internal Medicine; ATTEND Internal Medicine
DX: K85.90 Acute pancreatitis without necrosis or infection, unspecified (principal); E11.10 Type 2 diabetes mellitus with ketoacidosis without coma; N17.9 Acute kidney failure, unspecified; I82.890 Acute embolism and thrombosis of other specified veins; E87.1 Hypo-osmolality and hyponatremia; E11.65 Type 2 diabetes mellitus with hyperglycemia; E87.5 Hyperkalemia; D69.6 Thrombocytopenia, unspecified; E03.9 Hypothyroidism, unspecified; J32.0 Chronic maxillary sinusitis; E78.1 Pure hyperglyceridemia; Z79.4 Long term (current) use of insulin; G51.0 Bell's palsy; F31.9 Bipolar disorder, unspecified; F41.9 Anxiety disorder, unspecified; F32.9 Major depressive disorder, single episode, unspecified; Z88.8 Allergy status to other drugs, medicaments and biological substances; E78.5 Hyperlipidemia, unspecified; E66.9 Obesity, unspecified; Z68.31 Body mass index [BMI] 31.0-31.9, adult; T38.0X5A Adverse effect of glucocorticoids and synthetic analogues, initial encounter; I10 Essential (primary) hypertension; D64.9 Anemia, unspecified
CPT/HCPCS: 36415; 36416; 74000; 74170; 74177; 80048; 80053; 80061; 81003; 81015; 82010; 82330; 82550; 82570; 82803; 83605; 83690; 83735; 84100; 84156; 84484; 85025; 85610; 93005; 96361; 96374; 96375; 96376; A4216; J0360; J0696; J1815; J1885; J2270; J2405; J2550; J7042; J7050; Q0162

== ENCOUNTER 2018-10-17 18:23 | Inpatient (IN) | payer MEDICARE ==
[~2018-10-17 18:23] MED LIST: ISOVUE-370 76%-LOCM 1 ML ONE
[2018-10-17] MEDS ORDERED: Ondansetron ODT 4 MG TAB ONE (19:12)
[2018-10-17] MEDS ORDERED: Morphine 4 MG/ML VIAL ONE ×2 (19:31→22:26)
[2018-10-17 20:19] LABS: #Eosinphils 0.2 thou/uL (0.0-0.7); #Lymphocytes 0.8 thou/uL (1.20-3.40); #Monocytes 0.4 thou/uL (0.11-0.59); #Neutrophils 7.5 thou/uL (1.40-6.50); %Eosinophils 1.8 % (0.0-10.0); %Lymphocytes 9.1 % (21.0-51.0); %Monocytes 4.8 % (0.0-10.0); %Neutrophils 84.3 % (42.0-75.0); Hemoglobin 15.4 g/dL (14.0-18.0); Mean Corpuscular HGB CONC 35.1 g/dL (32.0-36.0); Mean Corpuscular Hemoglobin 28.2 pg (27.0-31.0); Mean Corpuscular Volume 80.3 fL (78.0-98.0); Mean Platelet Volume 12.1 fL (7.4-10.4); Platelet Count 125 thou/uL (130-400); RBC Distribution Width 13.1 % (11.5-14.5); RBC Morphology Normal; Red Blood Cell (RBC) Count 5.46 mill/uL (4.70-6.10); White Blood Cell (WBC) Count 8.9 thou/uL (4.8-10.8)
--- NOTE | 2018-10-17 20:26 | CT ---
CT Abdomen Pelvis W Con History: Epigastric pain. Comparison: CT abdomen and pelvis March 2017 Findings: Mild atelectasis in the lung bases. The spleen is markedly enlarged. 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 The pancreas has multiple peripancreatic fluid collections. The common bile ducts dilated proximal to the pancreatic head approximately 12 mm with n ormal appearance of the level of the pancreatic head. There is scarring along the pancreas from chronic pancreatitis. There is narrowing of the common hepatic artery. Portal vein is patent. The aortoiliac contour is nonaneurysmal. No dilated loops of large or small bowel. The appendix is vi sualized and is normal. Kidneys are unremarkable. No retroperitoneal perinephric adenopathy. Diffuse hepatic steatosis. No significant peripancreatic inflammation. Impression: 1. Evidence of chronic pancreatitis with what appears to be multiple small foci of walled off necrosi s. 2. Scarring along the pancreas with dilated common bile duct proximal to the pancreatic head likely s tricture from peripancreatic scarring. 3. Splenic vein occlusion with splenic varices. 4. Narrowing of the common hepatic artery due to peripancreatic scar. 5. Descending colon containing left lumbar hernia.
[2018-10-17 20:38] LABS: Albumin 4.5 g/dL (3.5-5.0)
[2018-10-17 20:39] LABS: Calcium 9.8 mg/dL (7.8-10.44); Carbon Dioxide 21 mmol/L (22-29)
[2018-10-17 20:40] LABS: Calc. Creatinine Clearance 0 mL/min (70-130); Estimated GFR-MDRD Greater than 90
[2018-10-17 20:42] LABS: BUN (Urea Nitrogen) 12 mg/dL (8.9-20.6); Sodium 134 mmol/L (136-145)
[2018-10-17 20:43] LABS: Chloride 98 mmol/L (98-107); Potassium 4.8 mmol/L (3.5-5.1)
[2018-10-17 20:44] LABS: Anion Gap 20 mmol/L (10-20); Glucose 318 mg/dL (70-105)
[2018-10-17 20:45] LABS: Bilirubin, Total 0.2 mg/dL (0.2-1.2); Globulin 2.8 g/dL (2.4-3.5)
[2018-10-17 20:46] LABS: Bilirubin Negative (Negative); Blood, Urine Negative (Negative); Clarity CLEAR (Clear); Glucose, Urine (Dipstick) >=1000 mg/dL (Negative); Leukocyte Negative (Negative); Nitrite Negative (Negative); Protein, Urine (Dipstick) 30 mg/dL (Neg-Trace)
[2018-10-17 20:47] LABS: Alkaline Phosphatase 103 U/L (40-150); Protein, Total 7.3 g/dL (6.0-8.3)
[2018-10-17 20:48] LABS: Bacteria/HPF None Seen HPF (None Seen); Hyaline Casts/LPF 7-10 HYALINE CAST LPF (0-3 Hyaline); RBC/HPF 0-3 HPF (0-3)
[2018-10-17 20:48] LABS: ALT (SGPT) 14 U/L (8-55); AST (SGOT) 26 U/L (5-34); Lipase 24 U/L (8-78)
[2018-10-17 20:49] LABS: Specific Gravity, Urine Greater than 1.060 (1.002-1.036)
[2018-10-18 00:35] VITALS: BMI 30.6
[2018-10-18] MEDS ORDERED: Dextrose 5% in Water 1,000 ML IV PRN (02:08)
[2018-10-18] MEDS ORDERED: Dextrose 50% Abboject 50 ML SYRINGE SLOW IVP PRN (02:08)
[2018-10-18] MEDS ORDERED: Gabapentin 400 MG CAP PO SCH (02:15)
[2018-10-18] MEDS: Acetaminophen 325 MG TAB PO PRN (02:30)
[2018-10-18] MEDS ORDERED: Ondansetron PF 4 MG/2 ML Vial IVP PRN (02:32)
[2018-10-18] MEDS ORDERED: Ondansetron ODT 4 MG TAB PO PRN (02:32)
[2018-10-18] MEDS: HumaLOG 300 UNITS/3 ML VIAL SC PRN ×5 (02:36→22:37)
[2018-10-18] MEDS: Lactated Ringer's 1,000 ML IV SCH ×4 (03:00→22:43)
[2018-10-18] MEDS: Morphine 4 MG/ML VIAL SLOW IVP PRN ×5 (03:04→20:56)
--- NOTE | 2018-10-18 04:00 | HP ---
PRIMARY CARE DOCTOR: Dr. Bre Kraft. CODE STATUS: Full code. TIME OF EVALUATION: 02:40 a.m. CHIEF COMPLAINT: Abdominal pain. HISTORY OF PRESENT ILLNESS: This is a 33-year-old male patient, past medical history of chronic pancreatitis, diabetes, history of alcohol abuse in the past. The patient came to the hospital after having severe abdominal pain with no clear triggers. No alleviating factors. Associated with nausea and vomiting, symptoms were severe. The patient reported that he had the same symptoms when he gets exacerbation of his chronic pancreatitis. REVIEW OF SYSTEMS: CONSTITUTIONAL: No fever, chills. The patient has generalized weakness. RESPIRATORY: No cough, sputum production, or shortness of breath. CARDIOVASCULAR: No chest pain or palpitation. GASTROINTESTINAL: The patient had nausea, vomiting. No diarrhea. The patient has abdominal pain that is diffuse. CENTRAL NERVOUS SYSTEM: No dizziness, headache, or feeling lightheaded. GENITOURINARY: No burning with urination EXTREMITIES: No leg swelling. All other systems were reviewed and negative except for the findings mentioned above. PAST MEDICAL HISTORY: Includes diabetes type 1, hypothyroidism, pancreatitis, Han's palsy, GERD. PAST SURGICAL HISTORY: Liver laceration repair, left femoral repair, jaw repair , cholecystectomy. FAMILY HISTORY: Reviewed and non contributory to current presentation. PSYCHIATRIC HISTORY: The patient has a history of anxiety, bipolar disorder with psych admissions. SOCIAL HISTORY: No alcohol. No drugs. No smoking history. Lives at home with family. Lives with his spouse and parents. ALLERGIES: KNOWN ALLERGIES TO FLUOXETINE AND HEPARIN FLUSH. REPORTED MEDICATIONS: 1. Carbamazepine. 2. Gabapentin. 3. Meloxicam. 4. Desipramine. 5. Paroxetine. 6. Metformin. 7. Glipizide. 8. Fenofibrate. 9. [place]. PHYSICAL EXAMINATION: VITAL SIGNS: On presentation, blood pressure 132/82 with heart rate 109, respiratory rate was 16, temperature 98.2. Pain was 7/10. Oxygen saturation 98 % on room air. GENERAL APPEARANCE: The patient is alert, oriented, no acute distress. HEENT: Eyes, normal conjunctiva. Moist oral mucosa. Anicteric. No JVD. RESPIRATORY: Bilateral air entry. No rales. No wheezes. Symmetric expansion. CARDIOVASCULAR: Normal rate. Regular rhythm. No murmurs. No gallop. No edema. ABDOMEN: Tender, soft. Normal bowel sounds. MUSCULOSKELETAL: Baseline range of motion and strength. SKIN: Warm, intact. No pallor. No rash. No redness. Capillary refill seems to intact. NEUROLOGIC: No evidence of any new focal weakness. Cranial nerves seems to be intact PSYCHIATRIC: The patient is in good mood. No anxiety. Optimal judgment. DIAGNOSTIC STUDIES: Abdomen and pelvis CT, the patient has areas of chronic pancreatitis with what appears to be multiple small foci of walled-off necrosis, scarring along the pancreas with dilated common bile duct proximal to the pancreatic head, likely stricture from peripancreatic scarring. There is splenic vein occlusion with splenic varices, narrowing of the common hepatic artery due to peripancreatic scar, descending colon containing the femoral hernia. The patient has white count 8.9, hemoglobin 15.4, platelet count 125. Chemistry ; sodium 134, potassium 4.8, chloride 98, carbon dioxide 21, anion gap 20, BUN 12, creatinine 0.8. GFR greater than 90, glucose 318, calcium 9.8. LFTs were negative. Troponin was negative. Urine was done and the patient has white count 4 to 6 with glucosuria and proteinuria. Beta hydroxybutyrate is 1.0. ASSESSMENT AND PLAN: The patient will be placed in the hospital with following medical problems; 1. Acute on chronic pancreatitis. The patient has findings on CT maybe compatible with necrosis. Place the patient on pain medications, hydration. We will monitor. 2. Uncontrolled diabetes with blood sugar 244. Place the patient on sliding scale. The patient is n.p.o. This will need to be adjusted once patient starts eating. 3. Hyponatremia, sodium 134. This is mild, no need for any acute intervention at this point. 4. Deep venous thrombosis prophylaxis. Job ID: [id number] [facility]
[2018-10-18] MEDS: Lisinopril 10 MG TAB PO SCH (08:41)
[2018-10-18] MEDS: Gabapentin 400 MG CAP PO SCH ×3 (08:41→20:48)
[2018-10-18] MEDS: PARoxetine 20 MG TAB PO SCH (08:41)
[2018-10-18] MEDS: carBAMazepine 200 MG TAB PO SCH ×2 (08:42→17:38)
[2018-10-18] MEDS ORDERED: Enoxaparin Sodium 40 MG/0.4 ML SYRINGE SC SCH (09:00)
[2018-10-18] MEDS: Pantoprazole 40 MG VIAL IVP SCH (11:34)
[2018-10-18 13:12] LABS: Anion Gap 14 mmol/L (10-20); BUN (Urea Nitrogen) 11 mg/dL (8.9-20.6); Calc. Creatinine Clearance 241 mL/min (70-130); Calcium 8.6 mg/dL (7.8-10.44); Carbon Dioxide 22 mmol/L (22-29); Chloride 98 mmol/L (98-107); Estimated GFR-MDRD Greater than 90; Glucose 228 mg/dL (70-105); Sodium 130 mmol/L (136-145)
[2018-10-18 13:18] LABS: #Eosinphils 0.1 thou/uL (0.0-0.7); #Lymphocytes 0.9 thou/uL (1.20-3.40); #Monocytes 0.3 thou/uL (0.11-0.59); #Neutrophils 1.8 thou/uL (1.40-6.50); %Basophils 0.4 % (0.0-1.0); %Eosinophils 3.3 % (0.0-10.0); %Lymphocytes 28.4 % (21.0-51.0); %Monocytes 8.7 % (0.0-10.0); %Neutrophils 59.2 % (42.0-75.0); Mean Corpuscular HGB CONC 34.2 g/dL (32.0-36.0); Mean Corpuscular Hemoglobin 28.1 pg (27.0-31.0); Mean Platelet Volume 11.9 fL (7.4-10.4); Platelet Count 61 thou/uL (130-400); Platelet Morphology Comment Appears Decreased; RBC Distribution Width 12.8 % (11.5-14.5); Red Blood Cell (RBC) Count 3.57 mill/uL (4.70-6.10)
--- NOTE | 2018-10-18 16:41 | PDOC.PN ---
- Subjective Encounter Start Date: 10/18/18 Encounter Start Time: 11:00 Subjective: Patient examined, states he is feeling better -: Reports being under stress with family demands and health issues -: Denies new c/o - Objective Resuscitation Status - Order Detail: 10/18/18 02:32 Resuscitation Status Routine Resuscitation Status: FULL: Full Resuscitation Vital Signs & Weight: Vital Signs (12 hours) Temp Pulse Resp BP BP Pulse Ox 10/18/18 16:00 98.3 F 85 20 122/74 100 10/18/18 11:54 98.4 F 86 16 113/75 97 10/18/18 08:41 122/79 10/18/18 08:00 97.4 F L 93 18 122/79 99 Weight Weight 83.574 kg I&O: 10/17/18 10/18/18 10/19/18 06:59 06:59 06:59 Intake Total 690 Output Total 350 Balance 340 Result Diagrams: 10/18/18 12:01 10/18/18 12:01 Additional Labs: Accuchecks 10/18/18 10/18/18 10/18/18 15:59 10:42 05:21 POC Glucose 268 H 282 H 208 H 10/18/18 10/17/18 02:36 19:18 POC Glucose 244 H 286 H Phys Exam - Physical Examination HEENT: PERRLA, moist MMs Neck: no nodes, no JVD Respiratory: no wheezing, clear to auscultation bilateral Cardiovascular: RRR, no significant murmur Gastrointestinal: soft, positive bowel sounds Mild epigastric tenderness to palpation Musculoskeletal: pulses present Neurological: non-focal, normal sensation Lymphatic: no nodes Psychiatric: normal affect, A&O x 3 Skin: cap refill <2 seconds Dx/Plan (1) Acute pancreatitis Code(s): K85.90 - ACUTE PANCREATITIS WITHOUT NECROSIS OR INFECTION, UNSP Status: Acute Comment: due to hyper TG (2) Hyperglycemia due to type 2 diabetes mellitus Code(s): E11.65 - TYPE 2 DIABETES MELLITUS WITH HYPERGLYCEMIA Status: Acute (3) Hypertriglyceridemia Code(s): E78.1 - PURE HYPERGLYCERIDEMIA Status: Chronic (4) Hypothyroidism Code(s): E03.9 - HYPOTHYROIDISM, UNSPECIFIED Status: Chronic - Plan GI consulted, will go for EGD tomorrow -: Triglycerides over 3000 -: Will continue fluids, DM II SS, pain control * .
[2018-10-18 20:29] LABS: Hemoglobin 12.4 g/dL (14.0-18.0)
[2018-10-18 21:59] LABS: Glucose 283 mg/dL (70-105)
[2018-10-18] MEDS: traZODone HCl 50 MG TAB PO PRN (22:42)
[2018-10-19] MEDS: Morphine 4 MG/ML VIAL SLOW IVP PRN ×3 (04:35→16:37)
[2018-10-19] MEDS: Lactated Ringer's 1,000 ML IV SCH (04:39)
[2018-10-19 05:32] LABS: Hemoglobin A1c 12.6 % (4.0-6.0)
[2018-10-19 06:02] LABS: ALT (SGPT) 41 U/L (8-55); AST (SGOT) 46 U/L (5-34); Albumin 3.3 g/dL (3.5-5.0); Alkaline Phosphatase 101 U/L (40-150); Anion Gap 21 mmol/L (10-20); BUN (Urea Nitrogen) Less than 4 mg/dL (8.9-20.6); Bilirubin, Total 0.2 mg/dL (0.2-1.2); Calc. Creatinine Clearance 220 mL/min (70-130); Calcium 8.3 mg/dL (7.8-10.44); Carbon Dioxide 15 mmol/L (22-29); Chloride 103 mmol/L (98-107); Estimated GFR-MDRD Greater than 90; Globulin 4.3 g/dL (2.4-3.5); Glucose 137 mg/dL (70-105); Lipase 26 U/L (8-78); Protein, Total 7.6 g/dL (6.0-8.3); Sodium 135 mmol/L (136-145)
[2018-10-19 06:45] LABS: Hemoglobin 12.1 g/dL (14.0-18.0); Mean Corpuscular HGB CONC 35.5 g/dL (32.0-36.0); Mean Corpuscular Hemoglobin 29.2 pg (27.0-31.0); Mean Corpuscular Volume 82.2 fL (78.0-98.0); Mean Platelet Volume 11.2 fL (7.4-10.4); Platelet Count 77 thou/uL (130-400); RBC Distribution Width 12.8 % (11.5-14.5); Red Blood Cell (RBC) Count 4.15 mill/uL (4.70-6.10); White Blood Cell (WBC) Count 3.2 thou/uL (4.8-10.8)
[2018-10-19 07:59] LABS: Band 8 % (5-11); Eosinophils 5 % (0-10); Lymphocytes 48 % (21-51); MDiff Complete? YES; Monocytes 6 % (0-10); Neutrophil 29 % (42-75); Platelet Morphology Comment Appears Decreased; Polychromasia SLIGHT = 2-3 cells (100X) (0-2/hpf); Reactive Lymphocytes 4 % (0-10)
[2018-10-19] MEDS ORDERED: Ondansetron HCl/PF 4 MG/2 ML Vial IVP PRN (11:16)
[2018-10-19] MEDS ORDERED: Promethazine HCl 25 MG/ML VIAL IM PRN (11:16)
[2018-10-19] MEDS ORDERED: Promethazine HCl 25 MG/ML VIAL SLOW IVP PRN (11:16)
[2018-10-19] MEDS ORDERED: PROPOFOL 200 MG/20 ML VIAL ONE (11:17)
[2018-10-19] MEDS ORDERED: Lidocaine 1% PF 5 ML VIAL ONE (11:17)
[2018-10-19] MEDS: Sodium Chloride 0.9% 1,000 ML IV SCH ×2 (12:09→21:31)
[2018-10-19] MEDS: Gabapentin 400 MG CAP PO SCH ×3 (12:37→21:29)
[2018-10-19] MEDS: Lisinopril 10 MG TAB PO SCH (12:37)
[2018-10-19] MEDS: carBAMazepine 200 MG TAB PO SCH ×2 (12:37→16:33)
[2018-10-19] MEDS: PARoxetine 20 MG TAB PO SCH (12:38)
[2018-10-19] MEDS: Pantoprazole 40 MG VIAL IVP SCH (12:38)
--- NOTE | 2018-10-19 13:45 | PDOC.PN ---
- Subjective Encounter Start Date: 10/19/18 Encounter Start Time: 15:30 Subjective: Patient feeling better. Pain improved. Tolerating full liquid diet today. -: Still with some diarrhea. - Objective Resuscitation Status - Order Detail: 10/18/18 02:32 Resuscitation Status Routine Resuscitation Status: FULL: Full Resuscitation MAR Reviewed: Yes Vital Signs & Weight: Vital Signs (12 hours) Temp Pulse Resp BP BP Pulse Ox 10/19/18 12:37 122/79 10/19/18 11:53 98.1 F 85 20 150/96 H 97 10/19/18 08:27 98.1 F 87 20 145/85 H 93 L 10/19/18 04:00 98.5 F 88 16 126/84 94 L Weight Weight 184 lb 4 oz I&O: 10/18/18 10/19/18 10/20/18 06:59 06:59 06:59 Intake Total 690 5930 Output Total 350 1325 Balance 340 4605 Result Diagrams: 10/19/18 04:59 10/19/18 04:59 Additional Labs: Accuchecks 10/18/18 15:59 POC Glucose 268 H Phys Exam - Physical Examination Constitutional: NAD HEENT: moist MMs Respiratory: no wheezing, no rales, no rhonchi Cardiovascular: RRR, no significant murmur Gastrointestinal: soft, non-tender, positive bowel sounds Musculoskeletal: no edema Neurological: non-focal Psychiatric: normal affect, A&O x 3 Dx/Plan (1) Acute pancreatitis Code(s): K85.90 - ACUTE PANCREATITIS WITHOUT NECROSIS OR INFECTION, UNSP Status: Acute Comment: due to hyper TG, improving, tolerating full liquids (2) Hypertriglyceridemia Code(s): E78.1 - PURE HYPERGLYCERIDEMIA Status: Chronic Comment: greater than 3000, started on Tricor (3) Diabetes mellitus type 2 in obese Code(s): E11.69 - TYPE 2 DIABETES MELLITUS WITH OTHER SPECIFIED COMPLICATION; E66.9 - OBESITY, UNSPECIFIED Status: Chronic Comment: insulin dependent (4) Hypothyroidism Code(s): E03.9 - HYPOTHYROIDISM, UNSPECIFIED Status: Chronic - Plan cont current plan of care, DVT proph w/SCDs advance diet tomorrow and home if tolerated * . - Discharge Day Encounter end time: 15:40
[2018-10-19] MEDS: HumaLOG 300 UNITS/3 ML VIAL SC PRN ×2 (17:45→21:59)
[2018-10-19] MEDS ORDERED: Insulin Glargine 30 UNITS in Pre-Filled Syringe 1 EACH SC SCH (21:00)
[2018-10-19] MEDS: traZODone HCl 50 MG TAB PO PRN (21:28)
--- NOTE | 2018-10-19 22:31 | CON ---
DATE OF CONSULTATION: HISTORY OF PRESENT ILLNESS: Mr. Puga is a pleasant 33-year-old gentleman who was admitted with abdominal pain and vomiting instead of chronic pancreatitis. He reports that over the past couple of weeks, he has been having worsening pain in his mid back, right between the shoulder blades and also exacerbation and worsening of his peripheral neuropathy, which he attributes to his diabetes. Over the past 24 hours, he began having issues with nausea and vomiting and just could not tolerate anything by mouth ending up coming into the hospital. His history goes back to 2009 at which time, it seems that he had a multi-organ failure and ARDS associated with pancreatitis that was probably at the [facility] by his description. He reports he has really been here at this hospital ever since. He has had some changes of chronic pancreatitis on imaging. His disease has been attributed in the past to some alcohol abuse, but he really had significant hypertriglyceridemia levels in the [id number] range in the past. He is presently feeling little bit better, but he did have some fever here. He denies having fever at home. He denies drinking any alcohol. He has been pretty compliant with his medicines. He has a primary care physician at [facility] he reports. This symptoms seem pretty similar to when he has had exacerbations of pancreatitis in the past. In the outpatient setting, he is on insulin and recently he had seen a dietitian and tried to change his diet. PAST MEDICAL HISTORY: Type 1 diabetes, hypothyroidism, hyperlipidemia, chronic pancreatitis, reflux, Han palsy. PAST SURGICAL HISTORY: Liver laceration after trauma in 2012 with that he also had some oral surgery and jaw repair. He has had a previous cholecystectomy. He has had a previous endoscopy in 2013 with no signs of gastric varices, this was done for splenomegaly in the setting of chronic pancreatitis. FAMILY HISTORY: Negative for GI malignancies, hypertriglyceridemia, pancreatitis. SOCIAL HISTORY: Quit drinking alcohol in 2010. He does not use drugs. ALLERGIES: HEPARIN AND PROZAC. MEDICATIONS: At home, carbamazepine, gabapentin, meloxicam, desipramine, paroxetine, metformin, glipizide, fenofibrate, Gilbert. He is going to see chronic pain management for this soon. Medications here; Tylenol, Tegretol/carbamazepine, Lovenox subcu, Neurontin, insulin sliding scale, LR 150 an hour, lisinopril, morphine, Zofran, paroxetine, sodium chloride, and trazodone. REVIEW OF SYSTEMS: Negative for fever, chills since he has been admitted here, has a low-grade temperature. Reports he has had weight loss about 15 pounds over the past couple months. He attributes this to some changes in eating and being out of appetite suppressant. He denies any rashes, myalgias, or arthralgias. Denies hematemesis, melena, or hematochezia. Denies night sweats, TB exposure, chest pain, shortness of breath, dyspnea on exertion. Denies history of coronary artery disease. Denies history of Ophthalmology for eye disease in fact, he notes his eye exam has been pretty good. His main problem after with his diabetes has been peripheral neuropathy. He does note that he may have been told he has gastroparesis in the past, but does not have any problems, chronic nausea and vomiting. PHYSICAL EXAMINATION: GENERAL: He is resting comfortably in bed. VITAL SIGNS: Temperature max this admission 100, T current 97, pulse 73, blood pressure 122/79. GENERAL: He is resting in bed. He is pleasant. He is in no extremis. Oropharynx without lesions. NECK: Supple with any adenopathy. LUNGS: Clear. HEART: Regular rate and rhythm without clicks or murmurs. ABDOMEN: Soft, mildly tender with no rebound or guarding. There is no palpable hepatosplenomegaly. He has a well-healed midline scar with no evidence of hernias. EXTREMITIES: No clubbing, cyanosis, or edema. SKIN: Notable for tattoos. It is pink and moist. Good peripheral perfusion and good pulses. LABORATORY DATA: From last evening, white count was 8.9, hemoglobin 15, platelet count 125. Sodium 134, potassium 4.8, chloride 98, bicarb 21, anion gap 15, BUN 12, creatinine 0.86, glucose was 318 on admission. It has ranged between 286 and 282 since admission. Bilirubin 0.2, AST 26, ALT 14, alkaline phosphatase 103, albumin 4.5, globulin 2.8. Troponin less than 0.01. Lipase 24. Urine glucose greater than 1000. No signs of UTI, 15 ketones. Beta-hydroxybutyrate 1.03. Hepatitis A, B, and C negative in 03/2017. CAT scan on admission showed splenomegaly with splenic hilar varices, splenic vein occlusion, narrowing of common hepatic artery due to scarred pancreas with dilated common bile duct proximal to this. Multiple foci of pseudocyst, which is really unchanged from previous exams review with Radiology. There are no signs of acute pancreatic necrosis, acute pancreatitis or pseudoaneurysms or gas-containing fluid collections. ASSESSMENT: 1. This is a 33-year-old gentleman with a change in chronic pancreatitis, who comes in with several days of epigastric upper back pain. He has no signs of acute pancreatitis. He has mild ketoacidosis and low-grade temperature, but is medically stable. Reviewing his films with Radiology, there are no signs to indicate acute on chronic pancreatitis or pancreatic abscesses. I do suspect this is probably low-grade flare in his chronic pancreatic disease, but he has been using NSAIDs recently. There are no signs of bleeding, but his peptic disease will be a concern as well. 2. Diabetes, poorly controlled, type 1. He is only on sliding scale insulin. He needs to be on routine insulin dose so he does not become ketoacidotic. 3. History of severe hypertriglyceridemia, likely cause of some of his bouts of pancreatitis in the past. This has been checked. We need to check this today. 4. Peripheral neuropathy, quite severe on pain management, going to see Pain Management soon. This is part of the reason he came to the hospital to assess any worsening recently. RECOMMENDATIONS: 1. Clear liquids. 2. We would reinstitute insulin. 3. EGD tomorrow to rule out gastritis or ulcers with NSAID use and no PPI use. 4. We would recommend Primary Service to start him on some type of insulin as he is type 1 diabetic, and I will just treat with sliding scale. 5. I have ordered a lipase .. Job ID: [id number]
--- NOTE | 2018-10-19 23:20 | OP ---
DATE OF PROCEDURE: 10/19/2018 PROCEDURE PERFORMED: Esophagogastroduodenoscopy. PREPROCEDURE DIAGNOSES: 1. History of chronic pancreatitis. 2. History of splenomegaly with splenic vein thrombosis and low platelet count. 3. History of recent NSAID use. 4. Admission with epigastric pain with normal lipase. POSTPROCEDURE DIAGNOSES: 1. Normal esophagus, no varices. 2. Mild portal gastropathy. No evidence of gastric varices. 3. Normal duodenum. RECOMMENDATIONS: 1. Advance diet. 2. Start scheduled insulin, 30 Lantus b.i.d. At home, he takes 75 b.i.d., Zoloft to be ramped up. 3. Start his fenofibrate for his hyperlipidemia. His triglycerides were 3239, yesterday. 4. Change IV fluid to normal saline at 100 an hour, which will be tapered off as he advances his diet. 5. Continue PPI. ANESTHESIA: TIVA. PROCEDURE IN DETAIL: The patient was informed of the risks, benefits, possible complications of endoscopy including perforation, reaction to medication, and aspiration, informed consent was obtained. The patient was brought to endoscopy suite. He was sedated. A bite block was placed inside the orifice. The endoscope was advanced through the esophagus, stomach, into the second and third portions of the duodenum and slowly removed. There was good visualization of the mucosa. There were no mass lesions or AV malformations identified. There were no esophageal varices. No evidence of gastric varices. No ulcers or erosions. Retroflexed views were normal. The duodenum was normal at third portion. The scope was removed. The patient tolerated the procedure well. There were no complications. Job ID: [id number]
[2018-10-20] MEDS: Acetaminophen 325 MG TAB PO PRN (02:26)
[2018-10-20] MEDS: Sodium Chloride 0.9% 1,000 ML IV SCH (02:26)
[2018-10-20 05:44] LABS: ALT (SGPT) 35 U/L (8-55); AST (SGOT) 28 U/L (5-34); Albumin 3.6 g/dL (3.5-5.0); Alkaline Phosphatase 111 U/L (40-150); Anion Gap 19 mmol/L (10-20); BUN (Urea Nitrogen) Less than 4 mg/dL (8.9-20.6); Bilirubin, Total 0.2 mg/dL (0.2-1.2); Calc. Creatinine Clearance 209 mL/min (70-130); Calcium 8.9 mg/dL (7.8-10.44); Carbon Dioxide 17 mmol/L (22-29); Chloride 100 mmol/L (98-107); Estimated GFR-MDRD Greater than 90; Globulin 4.1 g/dL (2.4-3.5); Glucose 190 mg/dL (70-105); Protein, Total 7.7 g/dL (6.0-8.3); Sodium 132 mmol/L (136-145)
[2018-10-20 05:52] LABS: Triglycerides 1721 mg/dL (Less than 150)
[2018-10-20 05:53] LABS: #Basophils 0.1 thou/uL (0.0-0.2); #Eosinphils 0.1 thou/uL (0.0-0.7); #Lymphocytes 1.6 thou/uL (1.20-3.40); #Monocytes 0.4 thou/uL (0.11-0.59); #Neutrophils 2.2 thou/uL (1.40-6.50); %Eosinophils 2.6 % (0.0-10.0); %Lymphocytes 37.1 % (21.0-51.0); %Monocytes 8.4 % (0.0-10.0); %Neutrophils 49.9 % (42.0-75.0); Hemoglobin 12.3 g/dL (14.0-18.0); Large Platelets SLIGHT; MDiff Complete? YES; Mean Corpuscular HGB CONC 35.2 g/dL (32.0-36.0); Mean Corpuscular Hemoglobin 28.6 pg (27.0-31.0); Mean Corpuscular Volume 81.3 fL (78.0-98.0); Platelet Count 67 thou/uL (130-400); Platelet Morphology Comment Appears Decreased; RBC Distribution Width 12.8 % (11.5-14.5); Red Blood Cell (RBC) Count 4.31 mill/uL (4.70-6.10); White Blood Cell (WBC) Count 4.4 thou/uL (4.8-10.8)
[2018-10-20] MEDS: HumaLOG 300 UNITS/3 ML VIAL SC PRN ×2 (06:12→12:55)
[2018-10-20] MEDS: Gabapentin 400 MG CAP PO SCH (08:36)
[2018-10-20] MEDS: carBAMazepine 200 MG TAB PO SCH (08:36)
[2018-10-20] MEDS: PARoxetine 20 MG TAB PO SCH (08:37)
[2018-10-20] MEDS: Lisinopril 10 MG TAB PO SCH (08:37)
[2018-10-20] MEDS: Pantoprazole 40 MG VIAL IVP SCH (08:40)
[2018-10-20] MEDS ORDERED: Fenofibrate Nanocrystallized 145 MG TAB PO SCH (09:00)
--- NOTE | 2018-10-20 09:57 | PDOC.PN ---
- Subjective Encounter Start Date: 10/20/18 Encounter Start Time: 13:50 Subjective: Patient feeling much better. Tolerated full liquid diet yesterday, so I -: switched him to low fat diet for lunch and he ate that without any pain. -: No N/V. Ready to go home. - Objective Resuscitation Status - Order Detail: 10/18/18 02:32 Resuscitation Status Routine Resuscitation Status: FULL: Full Resuscitation MAR Reviewed: Yes Vital Signs & Weight: Vital Signs (12 hours) Temp Pulse Resp BP BP BP Pulse Ox 10/20/18 08:37 143/82 H 10/20/18 07:23 98.1 F 83 16 143/82 H 95 10/20/18 04:00 97.9 F 82 16 160/95 H 96 10/20/18 00:00 98 F 90 18 131/74 91 L Weight Weight 184 lb 4 oz I&O: 10/19/18 10/20/18 10/21/18 06:59 06:59 06:59 Intake Total 5930 3700 Output Total 1325 Balance 4605 3700 Result Diagrams: 10/20/18 04:32 10/20/18 04:32 Additional Labs: Accuchecks 10/20/18 10/19/18 05:37 20:44 POC Glucose 184 H 305 H Phys Exam - Physical Examination Constitutional: NAD HEENT: moist MMs Respiratory: no wheezing, no rales, no rhonchi, clear to auscultation bilateral Cardiovascular: RRR, no significant murmur Gastrointestinal: soft, non-tender, no distention, positive bowel sounds Neurological: non-focal, moves all 4 limbs Psychiatric: normal affect, A&O x 3 Dx/Plan (1) Acute pancreatitis Code(s): K85.90 - ACUTE PANCREATITIS WITHOUT NECROSIS OR INFECTION, UNSP Status: Acute Comment: due to hyper TG, improving, tolerating low fat diet, ok to d/c home (2) Hypertriglyceridemia Code(s): E78.1 - PURE HYPERGLYCERIDEMIA Status: Chronic Comment: greater than 3000, started on Tricor (3) Diabetes mellitus type 2 in obese Code(s): E11.69 - TYPE 2 DIABETES MELLITUS WITH OTHER SPECIFIED COMPLICATION; E66.9 - OBESITY, UNSPECIFIED Status: Chronic Comment: insulin dependent (4) Hypothyroidism Code(s): E03.9 - HYPOTHYROIDISM, UNSPECIFIED Status: Chronic - Plan cont current plan of custodial today, f/u with Dr. Mello as outpatient and with PCP about -: hyperlipidemia * . - Discharge Day Encounter end time: 14:10
[2018-10-20 11:47] VITALS: BP 148/96; TEMP 97.7
--- NOTE | 2018-10-20 22:36 | DIS ---
DATE OF ADMISSION: 10/17/2018 DATE OF DISCHARGE: 10/20/2018 PRIMARY CARE PHYSICIAN: Abena Kaplan PA-C. REASON FOR ADMISSION: Flare of chronic pancreatitis. DIAGNOSES AT DISCHARGE: 1. Acute on chronic pancreatitis, resolved. 2. Hypertriglyceridemia. 3. Diabetes mellitus type 2, insulin dependent. 4. Hypothyroidism. PROCEDURES: 1. CT of the abdomen and pelvis with contrast showing evidence of chronic pancreatitis with multiple foci of walled-off necrosis, scarring along the pancreas with dilated common bile duct, proximal to the pancreatic head, likely a stricture. Splenic vein occlusion with splenic varices and narrowing of the common hepatic artery due to a peripancreatic scar, also with a left descending colon containing a left lumbar hernia. 2. EGD showing normal esophagus. No varices. Mild portal gastropathy without evidence of gastric varices and normal duodenum. CONSULTATIONS: Gastroenterology, Dr. Mello. SUMMARY OF HOSPITAL COURSE: This is a 33-year-old male with a past medical history of chronic pancreatitis due to alcohol and hypertriglyceridemia, also with insulin-dependent diabetes. He came in with nausea and vomiting and severe abdominal pain. Had normal lipase. CT as above. He was treated as a chronic pancreatitis flare. He did have an EGD that showed no significant varices. His symptoms quickly resolved. He was able to be switched to clear liquids and his diet was slowly increased, which he is now tolerating a low-fat diet without any return of his symptoms. He was started on Tricor for his triglycerides which were in the 3000s, which is where they have been in the past. The patient was doing well on the day of discharge and is being discharged home. DISCHARGE MANAGEMENT: Discharged home. FOLLOWUP: Follow up with Dr. Mello in 3 to 4 weeks and with his primary care physician in 1 to 2 weeks for hyperlipidemia. ACTIVITY: As tolerated. DIET: Low-fat, diabetic diet. MEDICATIONS: 1. TriCor 145 mg daily, 30 tablets dispensed. 2. Omeprazole 40 mg daily, 30 capsules dispensed. 3. Continue Tegretol 600 mg twice a day. 4. Gabapentin 800 mg 3 times a day. 5. Lisinopril 20 mg daily. 6. Paroxetine 20 mg daily. 7. Trazodone 50 mg at night. 8. Insulin glargine, I believe he is taking 75 units twice a day, which we will discontinue whatever he was on at home. 9. Metformin 1000 mg twice a day. TIME SPENT: Arranging the details of this discharge took 32 minutes. Job ID: [id number]
== END 2018-10-20 14:51 | disposition home or self-care (01) | DRG 439 ==
LOC: ERS 18:23 → OBSVTOIN 23:10 → SURG B 23:10
PROVIDERS: ADMIT Hospitalist; ATTEND Hospitalist
PROC: 0DJ08ZZ Inspection of Upper Intestinal Tract, Via Natural or Artificial Opening Endoscopic (ICD-10-PCS; principal; 2018-10-19)
DX: K85.90 Acute pancreatitis without necrosis or infection, unspecified (principal); E87.1 Hypo-osmolality and hyponatremia; E10.10 Type 1 diabetes mellitus with ketoacidosis without coma; K76.6 Portal hypertension; F10.188 Alcohol abuse with other alcohol-induced disorder; F31.9 Bipolar disorder, unspecified; E03.9 Hypothyroidism, unspecified; E10.42 Type 1 diabetes mellitus with diabetic polyneuropathy; E78.1 Pure hyperglyceridemia; G51.0 Bell's palsy; K21.9 Gastro-esophageal reflux disease without esophagitis; K31.89 Other diseases of stomach and duodenum; F41.9 Anxiety disorder, unspecified; Z88.8 Allergy status to other drugs, medicaments and biological substances; Z79.899 Other long term (current) drug therapy; K86.0 Alcohol-induced chronic pancreatitis
CPT/HCPCS: 36415; 36416; 74177; 80048; 80053; 81003; 81015; 82010; 82947; 83036; 83690; 84478; 84484; 85025; 93005; 96361; 96374; 96376; C9113; J1650; J1815; J2001; J2270; J2704; Q0162; Q9966

== ENCOUNTER 2018-12-04 17:01 | Inpatient (IN) | payer MEDICARE ==
[2018-12-04] MEDS ORDERED: Aspirin Chewable 81 MG TAB ONE (17:45)
--- NOTE | 2018-12-04 17:57 | RAD ---
XR Chest 1 View Portable History: Chest pain Comparison: Radiograph 2017 Findings: Lungs are mildly hypoinflated. Left axillary surgical clips. Cardiac silhouette and mediast inal contours are normal for the low lung volume. No acute osseous abnormality. Impression: No acute intrathoracic abnormality.
[2018-12-04 18:16] LABS: #Basophils 0.1 thou/uL (0.0-0.2); #Eosinphils 0.1 thou/uL (0.0-0.7); #Lymphocytes 2.2 thou/uL (1.20-3.40); #Monocytes 0.5 thou/uL (0.11-0.59); %Basophils 1.8 % (0.0-1.0); %Eosinophils 0.9 % (0.0-10.0); %Lymphocytes 32.1 % (21.0-51.0); %Monocytes 7.6 % (0.0-10.0); %Neutrophils 57.6 % (42.0-75.0); Hemoglobin 13.3 g/dL (14.0-18.0); Mean Corpuscular Hemoglobin 27.9 pg (27.0-31.0); Mean Corpuscular Volume 79.7 fL (78.0-98.0); Platelet Count 113 thou/uL (130-400); RBC Distribution Width 13.1 % (11.5-14.5); Red Blood Cell (RBC) Count 4.78 mill/uL (4.70-6.10); White Blood Cell (WBC) Count 6.9 thou/uL (4.8-10.8)
[2018-12-04 18:22] LABS: Platelet Morphology Comment Appears Decreased; RBC Morphology Normal
--- NOTE | 2018-12-04 18:53 | CT ---
CTA Angio Chest W WO Con History: Chest pain Comparison: Radiograph same day Findings: CT angiogram chest performed after the intravenous administration of contrast. 3-D renderin g provided. Pulmonary trunk is enlarged measuring 35mm. No proximal segmental pulmonary arterial filling defect. Limited evaluation of the upper abdomen demonstrates splenomegaly and what appears to be varices. Abnormal hypoattenuation of the pancreas. Mild atelectasis in the lung bases. No airspace consolidation, pneumothorax, or effusion. No acute osseous abnormality. Impression: 1. No proximal segmental pulmonary arterial filling defect. 2. Dilated pulmonary trunk suggesting pulmonary arterial hypertension. 3. Splenomegaly with extensive varices.
[2018-12-04 19:45] LABS: Albumin 4.1 g/dL (3.5-5.0)
[2018-12-04 19:46] LABS: Chloride 92 mmol/L (98-107); Sodium 128 mmol/L (136-145)
[2018-12-04 19:47] LABS: Calcium 9.8 mg/dL (7.8-10.44)
[2018-12-04 19:48] LABS: Globulin 5.6 g/dL (2.4-3.5); Glucose 367 mg/dL (70-105); Protein, Total 9.7 g/dL (6.0-8.3)
[2018-12-04 19:49] LABS: Anion Gap 22 mmol/L (10-20); Carbon Dioxide 19 mmol/L (22-29)
[2018-12-04 19:50] LABS: Alkaline Phosphatase 86 U/L (40-150); Bilirubin, Total 0.3 mg/dL (0.2-1.2)
[2018-12-04 19:51] LABS: Calc. Creatinine Clearance 0 mL/min (70-130); Estimated GFR-MDRD Greater than 90
[2018-12-04 19:52] LABS: BUN (Urea Nitrogen) 13 mg/dL (8.9-20.6)
[2018-12-04 19:53] LABS: AST (SGOT) 28 U/L (5-34)
[2018-12-04 19:54] LABS: ALT (SGPT) Less than 35 U/L (8-55)
[2018-12-04] MEDS ORDERED: Insulin Regular 300 UNITS/3 ML VIAL ONE (20:30)
[2018-12-04] MEDS ORDERED: Morphine 4 MG/ML VIAL ONE (20:51)
[2018-12-04] MEDS ORDERED: Ondansetron PF 4 MG/2 ML Vial ONE (20:51)
[2018-12-04] MEDS ORDERED: Sodium Chloride 0.9% 1,000 ML IV PRN (20:59)
[2018-12-04] MEDS ORDERED: CCU Electrolyte Replacement 1 EACH IVPB ONE (20:59)
[2018-12-04] MEDS ORDERED: Acetaminophen 325 MG TAB PO PRN (21:06)
[2018-12-04] MEDS ORDERED: Ondansetron ODT 4 MG TAB PO PRN (21:06)
[2018-12-04] MEDS ORDERED: Ondansetron PF 4 MG/2 ML Vial IVP PRN (21:06)
[2018-12-04] MEDS ORDERED: Acetaminophen 650 MG Suppository PR PRN (21:06)
[2018-12-04] MEDS ORDERED: Magnesium 2 GM/50 ML 2 GM in Premix Bag 1 BAG IVPB PRN (21:14)
[2018-12-04] MEDS ORDERED: PHOS-NAK 1 PKT PACK PO PRN ×2 (21:14)
[2018-12-04] MEDS ORDERED: Potassium Chloride 20 MEQ TAB PO PRN (21:14)
[2018-12-04] MEDS ORDERED: Potassium Phosphate 9 MMOL in Sodium Chloride 0.9% 100 ML IVPB PRN (21:14)
[2018-12-04] MEDS ORDERED: Magnesium Oxide 400 MG TAB PO PRN ×2 (21:14)
[2018-12-04] MEDS ORDERED: Potassium Chloride 40 MEQ in Sodium Chloride 0.9% 250 ML 250 ML IVPB PRN (21:14)
[2018-12-04] MEDS ORDERED: Potassium Phosphate 15 MMOL in Sodium Chloride 0.9% 250 ML 250 ML IV PRN (21:14)
[2018-12-04] MEDS ORDERED: CCU ELECTROLYTE REPLACEMENT PROTOCOL FS PRN (21:14)
[2018-12-04] MEDS ORDERED: Potassium Phosphate 12 MMOL in Sodium Chloride 0.9% 250 ML 250 ML IV PRN (21:14)
[2018-12-04] MEDS ORDERED: Potassium Chloride 40 MEQ in Premix Bag 1 BAG IVPB PRN (21:14)
[2018-12-04 22:56] LABS: Anion Gap 21 mmol/L (10-20); BUN (Urea Nitrogen) 13 mg/dL (8.9-20.6); Calc. Creatinine Clearance 0 mL/min (70-130); Calcium 9.3 mg/dL (7.8-10.44); Carbon Dioxide 20 mmol/L (22-29); Chloride 94 mmol/L (98-107); Estimated GFR-MDRD Greater than 90; Glucose 317 mg/dL (70-105); Potassium 4.2 mmol/L (3.5-5.1); Sodium 131 mmol/L (136-145)
[2018-12-04 22:58] VITALS: BMI 29.5
[2018-12-04] MEDS: HUMULIN R 100 UNITS in Sodium Chloride 0.9% 100 ML IVPB SCH (23:35)
[2018-12-05] MEDS: HYDROcodone/Acetaminophen 10/325 mg Tablet PO PRN ×5 (00:22→21:55)
[2018-12-05] MEDS ORDERED: Pregabalin 75 MG CAP PO SCH (00:45)
[2018-12-05 01:15] LABS: Anion Gap 21 mmol/L (10-20); BUN (Urea Nitrogen) 13 mg/dL (8.9-20.6); Calc. Creatinine Clearance 191 mL/min (70-130); Calcium 8.7 mg/dL (7.8-10.44); Carbon Dioxide 16 mmol/L (22-29); Chloride 99 mmol/L (98-107); Estimated GFR-MDRD Greater than 90; Glucose 253 mg/dL (70-105); Potassium 4.1 mmol/L (3.5-5.1); Sodium 132 mmol/L (136-145)
--- NOTE | 2018-12-05 01:35 | PDOC.EVN ---
Event Note - Event Note Event Note: CP r/o acs, stress test could be done after metabolic problems are corrected.
[2018-12-05 01:46] LABS: Troponin I 0.017 ng/mL (< 0.028)
[2018-12-05] MEDS: D5 1/2 NS w/20 mEq KCL 1,000 ML IV SCH ×6 (02:15→19:16)
--- NOTE | 2018-12-05 02:45 | HP ---
CODE STATUS: Full code. TIME OF EVALUATION: 9:15 p.m. CHIEF COMPLAINT: Chest pain. HISTORY OF PRESENT ILLNESS: A 33-year-old male patient with past medical history of diabetes; hypertriglyceridemia; recurrent chronic pancreatitis; diabetes, type 2; hypothyroidism; and neuropathy, came to the hospital after having an episode of chest pain that was in the right side with no clear triggers. No alleviating factors. Symptoms were moderate, and pain radiates to the arm pit and to the right arm. REVIEW OF SYSTEMS: CONSTITUTIONAL: No fever, chills, or generalized weakness. RESPIRATORY: No cough, sputum production, or shortness of breath. CARDIOVASCULAR: Chest pain. No palpitation. GASTROINTESTINAL: No nausea, vomiting, diarrhea, or abdominal pain. 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 GENITOURINARY: No burning urination. EXTREMITIES: No leg swelling. All other systems were reviewed and negative except for the findings mentioned above. PAST MEDICAL HISTORY: Positive for the findings mentioned in the HPI. PAST SURGICAL HISTORY: Exploratory lap with liver laceration repair, left femur repair, jaw repair, and cholecystectomy. PSYCHIATRIC HISTORY: Anxiety, bipolar disorder, and depression. SOCIAL HISTORY: No alcohol. No drugs. No smoking history. Lives at home with family. KNOWN ALLERGIES: To fluoxetine and heparin flush. REPORTED MEDICATIONS: 1. Desipramine. 2. Paroxetine. 3. Metformin. 4. Glipizide. 5. Fenofibrate. 6. [place]. 7. Lyrica. 8. Carbamazepine. 9. Lisinopril. 10. Acetaminophen. 11. Ibuprofen. PHYSICAL EXAMINATION: VITAL SIGNS: On presentation, blood pressure 114/70 with heart rate 109, respiratory rate was 20, temperature 98.2, pain was 7/10, and oxygen saturation was 97%. GENERAL APPEARANCE: The patient is alert, oriented, in no acute distress. HEENT: Eyes, normal conjunctivae. Moist oral mucosa. Anicteric. No JVD. RESPIRATORY: Bilateral air entry. No rales. No wheezes. Symmetric expansion. CARDIOVASCULAR: Normal rate. Regular rhythm. No murmurs. No gallop. No edema. ABDOMEN: Soft. Normal bowel sounds. MUSCULOSKELETAL: Baseline range of motion and strength. SKIN: Warm, intact. No pallor. No rash. No redness. Capillary refill seems to be intact. NEURO: No evidence of any new focal weakness. The patient has peripheral neuropathy with change in sensation in bilateral lower extremities. Cranial nerves seem to be intact. PSYCH: The patient is in good mood. No anxiety. Optimal judgment. DIAGNOSTIC DATA: EKG was reviewed. The patient has left anterior fascicular block, FL 144, QRS duration 94. Chest CTA was done. The patient has no PE. The patient has dilated pulmonary trunk, suggesting pulmonary arterial hypertension, splenomegaly with extensive varices. Chest x-ray was reviewed. The patient has no acute intrathoracic abnormality. LABORATORY DATA: Reviewed. The patient has white count 6.9, hemoglobin 13.3, MCV 79.7, and platelet count 113. D-dimer 0.5. Chemistry on presentation; sodium 135, potassium 5.0, chloride 92, carbon dioxide 19, anion gap 22, BUN 13, creatinine 0.71, GFR greater than 90, glucose 267, total bilirubin 0.3, AST 28, ALT less than 35, and alkaline phosphatase 86. Beta natriuretic peptide less than 10. Serum total protein 9.7 and triglycerides 3499. Beta hydroxybutyrate was 0.21. ASSESSMENT AND PLAN: The patient will be placed in the hospital with following medical problems: 1. Severe hypertriglyceridemia in the range of 3400. Place the patient on insulin drip, will be n.p.o. The patient will get fenofibrate. We will monitor triglycerides q.12 with a goal of bringing down the triglyceride level to below 500. This is likely the etiology for the patient's chronic pancreatitis. 2. Early stage of uncontrolled diabetes/diabetic ketoacidosis. The patient presented with minimal anion gap metabolic acidosis. Beta hydroxybutyrate was normal. The patient is placed already on insulin drip for the hypertriglyceridemia, so this will get the diabetes in better control. 3. Positive D-dimer. CT angio is negative. No any further recommendations. 4. Hypothyroidism. Reconcile home medications. 5. History of gastroesophageal reflux disease, reconcile home medications. 6. Neuropathy. Reconcile home medications, improve control of diabetes. 7. History of bipolar disorder, reconcile home medications. Job ID: [id number]
[2018-12-05 05:00] LABS: Anion Gap 20 mmol/L (10-20); BUN (Urea Nitrogen) 12 mg/dL (8.9-20.6); Calc. Creatinine Clearance 185 mL/min (70-130); Calcium 8.6 mg/dL (7.8-10.44); Carbon Dioxide 16 mmol/L (22-29); Chloride 100 mmol/L (98-107); Estimated GFR-MDRD Greater than 90; Glucose 317 mg/dL (70-105); Potassium 4.1 mmol/L (3.5-5.1); Sodium 132 mmol/L (136-145)
[2018-12-05 05:04] LABS: Troponin I 0.017 ng/mL (< 0.028)
[2018-12-05] MEDS: carBAMazepine 200 MG TAB PO SCH ×2 (08:12→20:00)
[2018-12-05] MEDS: Fenofibrate Nanocrystallized 145 MG TAB PO SCH (08:12)
[2018-12-05] MEDS: Lisinopril 20 MG TAB PO SCH (08:12)
[2018-12-05] MEDS: Pregabalin 75 MG CAP PO SCH ×2 (08:13→20:01)
[2018-12-05] MEDS ORDERED: Fenofibrate Nanocrystallized 145 MG TAB PO SCH (09:00)
[2018-12-05] MEDS ORDERED: DESIPRAMINE HCL 25 MG PO SCH (09:00)
[2018-12-05] MEDS ORDERED: Cyclobenzaprine 10 MG TAB PO SCH (09:45)
[2018-12-05] MEDS: HUMULIN R 100 UNITS in Sodium Chloride 0.9% 100 ML IVPB SCH (12:23)
[2018-12-05] MEDS ORDERED: Insulin Glargine 65 UNITS in Pre-Filled Syringe SC SCH (16:15)
--- NOTE | 2018-12-05 17:29 | PDOC.HOSPP ---
- Subjective Encounter Date: 12/05/18 Encounter Time: 11:20 Subjective: Pt seen for followup re: acute pancreatitis. Says he feels slightly better. c/ o right sided chest pain, radiating to right shoulder. - Objective Vital Signs & Weight: Vital Signs (12 hours) Temp 12/05/18 15:48 97.7 F 12/05/18 11:23 97.4 F L 12/05/18 07:24 97.6 F Weight Weight 177 lb 9 oz Most Recent Monitor Data Heart Rate from ECG 87 NIBP 107/75 NIBP BP-Mean 85 Respiration from ECG 18 SpO2 97 I&O: 12/04/18 12/05/18 12/06/18 06:59 06:59 06:59 Intake Total 2870 3531 Output Total 450 2775 Balance 2420 756 Result Diagrams: 12/04/18 17:49 12/05/18 04:34 Additional Labs: Accuchecks 12/05/18 12/05/18 12/05/18 16:03 15:19 14:34 POC Glucose 210 H 204 H 229 H 12/05/18 12/05/18 12/05/18 13:23 11:05 10:10 POC Glucose 289 H 194 H 221 H 12/05/18 12/05/18 12/05/18 09:07 08:00 07:04 POC Glucose 289 H 227 H 234 H 12/05/18 12/05/18 12/05/18 05:59 04:35 03:14 POC Glucose 237 H 325 H 290 H 12/05/18 12/05/18 12/04/18 02:14 00:51 23:36 POC Glucose 239 H 249 H 337 H 12/04/18 21:30 POC Glucose 355 H labs and MARs reviewed by me EKG Reviewed by me: Yes (Tele: NSR) ROS - Review of Systems Cardiovascular: reports: chest pain. denies: palpitations, orthopnea, paroxysmal noc. dyspnea, edema, light headedness Gastrointestinal: denies: nausea, vomitting, abdominal pain, diarrhea, constipation, melena, hematochezia - Medication Medications: Active Medications Generic Name Dose Route Start Last Admin Trade Name Freq PRN Reason Stop Dose Admin Hydrocodone Bitart/Acetaminophen 1 tab 12/04/18 23:28 12/05/18 10:23 Humphrey 10/325 PO 1 tab Q4HR PRN Administration Pain Carbamazepine 400 mg 12/05/18 09:00 12/05/18 08:12 Tegretol PO 400 mg QAM HENRY Administration Fenofibrate 145 mg 12/05/18 09:00 12/05/18 08:12 Tricor PO 145 mg DAILY HENRY Administration Potassium Chloride/Dextrose/Sod Cl 1,000 mls @ 250 mls/hr 12/04/18 21:00 02/13 14:45 D5 1/2 Ns W/20 Meq Kcl IV 1,000 mls .Q4H HENRY Administration Protocol Insulin Human Regular 100 101 mls @ 0 mls/hr 12/04/18 21:00 12/05/18 12:23 units/ Sodium Chloride IVPB 101 mls INF HENRY Administration Protocol Titrate Sodium Chloride 1,000 mls @ 250 mls/hr 12/04/18 20:59 12/04/18 23:35 Normal Saline 0.9% IV 1,000 mls .Q4H PRN Administration SEE STEP 3 OF DKA PROTOCOL Protocol Insulin Glargine 65 units/ 0.65 mls @ 0 mls/hr 12/05/18 16:15 12/05/18 16:49 Miscellaneous Medication SC 12/05/18 18:15 0.65 mls NOW HENRY Administration Lisinopril 20 mg 12/05/18 09:00 12/05/18 08:12 Zestril PO 20 mg DAILY HENRY Administration Pantoprazole Sodium 40 mg 12/05/18 09:00 12/05/18 08:13 Protonix PO 40 mg DAILY HENRY Administration Pregabalin 75 mg 12/05/18 09:00 12/05/18 08:13 Lyrica PO 75 mg BID HENRY Administration - Exam NAD Eye: anicteric sclera ENT: normocephalic atraumatic Neck: supple Heart: RRR Respiratory: CTAB Gastrointestinal: soft Extremities: no cyanosis Skin: normal turgor Neurological: CN's grossly intact Musculoskeletal - other findings: reproducible chest wall tenderness Psychiatric: normal affect Hosp A/P (1) DKA (diabetic ketoacidoses) Code(s): E13.10 - OTH DIABETES MELLITUS WITH KETOACIDOSIS WITHOUT COMA Status : Acute Qualifiers: Diabetes mellitus type: type 2 Diabetes mellitus complication detail: without coma Qualified Code(s): E11.10 - Type 2 diabetes mellitus with ketoacidosis without coma (2) Anxiety and depression Code(s): F41.9 - ANXIETY DISORDER, UNSPECIFIED; F32.9 - MAJOR DEPRESSIVE DISORDER, SINGLE EPISODE, UNSPECIFIED Status: Chronic (3) Hypertriglyceridemia Code(s): E78.1 - PURE HYPERGLYCERIDEMIA Status: Chronic (4) Hypothyroidism Code(s): E03.9 - HYPOTHYROIDISM, UNSPECIFIED Status: Chronic - Plan Blood sugars improving. Lipase was normal, no evidence of pancreatitis. Check Chem-7 to assess anion gap/bicarb. If labs improved, switch to lantus + ISS. Trial flexeril for muscle spasm.
[2018-12-05 18:03] LABS: Anion Gap 18 mmol/L (10-20); BUN (Urea Nitrogen) 5 mg/dL (8.9-20.6); Calc. Creatinine Clearance 198 mL/min (70-130); Calcium 8.5 mg/dL (7.8-10.44); Carbon Dioxide 19 mmol/L (22-29); Chloride 100 mmol/L (98-107); Estimated GFR-MDRD Greater than 90; Glucose 198 mg/dL (70-105); Potassium 4.2 mmol/L (3.5-5.1); Sodium 133 mmol/L (136-145)
[2018-12-05] MEDS: Cyclobenzaprine 10 MG TAB PO PRN (20:00)
[2018-12-06] MEDS: HYDROcodone/Acetaminophen 10/325 mg Tablet PO PRN ×5 (02:11→21:01)
[2018-12-06 05:29] LABS: Band 1 % (5-11); Eosinophils 3 % (0-10); Hemoglobin 12.8 g/dL (14.0-18.0); Lymphocytes 64 % (21-51); MDiff Complete? YES; Mean Corpuscular HGB CONC 35.1 g/dL (32.0-36.0); Mean Corpuscular Hemoglobin 28.3 pg (27.0-31.0); Mean Corpuscular Volume 80.5 fL (78.0-98.0); Mean Platelet Volume 10.9 fL (7.4-10.4); Monocytes 5 % (0-10); Neutrophil 27 % (42-75); Platelet Count 75 thou/uL (130-400); Platelet Morphology Comment Appears Decreased; RBC Distribution Width 12.8 % (11.5-14.5); RBC Morphology Normal; Red Blood Cell (RBC) Count 4.55 mill/uL (4.70-6.10)
[2018-12-06 05:39] LABS: Anion Gap 18 mmol/L (10-20); BUN (Urea Nitrogen) 8 mg/dL (8.9-20.6); Calc. Creatinine Clearance 213 mL/min (70-130); Calcium 9.1 mg/dL (7.8-10.44); Carbon Dioxide 19 mmol/L (22-29); Chloride 98 mmol/L (98-107); Estimated GFR-MDRD Greater than 90; Glucose 203 mg/dL (70-105); Potassium 4.1 mmol/L (3.5-5.1); Sodium 131 mmol/L (136-145)
[2018-12-06] MEDS ORDERED: Dextrose 5% in Water 1,000 ML IV PRN (06:15)
[2018-12-06] MEDS ORDERED: Dextrose 50% Abboject 50 ML SYRINGE IVP PRN (06:15)
[2018-12-06] MEDS ORDERED: Insulin Regular 300 UNITS/3 ML VIAL SC PRN (06:15)
[2018-12-06] MEDS: Insulin Regular 300 UNITS/3 ML VIAL SC PRN ×3 (06:28→17:02)
[2018-12-06] MEDS: Insulin Glargine 65 UNITS in Pre-Filled Syringe 1 EACH SC SCH ×2 (09:07→21:02)
[2018-12-06] MEDS: Fenofibrate Nanocrystallized 145 MG TAB PO SCH (09:08)
[2018-12-06] MEDS: carBAMazepine 200 MG TAB PO SCH ×2 (09:08→20:59)
[2018-12-06] MEDS: Pregabalin 75 MG CAP PO SCH ×2 (09:09→20:59)
[2018-12-06] MEDS: Lisinopril 20 MG TAB PO SCH (09:10)
[2018-12-06] MEDS: Cyclobenzaprine 10 MG TAB PO PRN ×2 (14:57→22:30)
--- NOTE | 2018-12-06 15:43 | PDOC.HOSPP ---
- Subjective Encounter Date: 12/06/18 Encounter Time: 13:00 Subjective: Pt seen for followup re; chest pain. Feels better. - Objective Vital Signs & Weight: Vital Signs (12 hours) Temp BP BP Pulse Ox 12/06/18 15:09 98.0 F 12/06/18 15:00 146/95 H 12/06/18 11:05 97.6 F 12/06/18 09:10 125/85 12/06/18 07:52 98 12/06/18 07:06 97.6 F Weight Weight 185 lb Most Recent Monitor Data Heart Rate from ECG 87 NIBP 125/85 NIBP BP-Mean 98 Respiration from ECG 16 SpO2 95 I&O: 12/05/18 12/06/18 12/07/18 06:59 06:59 06:59 Intake Total 2870 5603 Output Total 450 4275 Balance 2420 1328 Result Diagrams: 12/06/18 04:44 12/06/18 04:44 Additional Labs: Accuchecks 12/06/18 12/06/18 12/05/18 10:30 06:30 16:03 POC Glucose 247 H 188 H 210 H labs and MARs reviewed by me EKG Reviewed by me: Yes (Tele: NSR) ROS - Review of Systems Cardiovascular: reports: chest pain. denies: palpitations, orthopnea, paroxysmal noc. dyspnea, edema, light headedness Gastrointestinal: denies: nausea, vomitting, abdominal pain, diarrhea, constipation, melena, hematochezia - Medication Medications: Active Medications Generic Name Dose Route Start Last Admin Trade Name Freq PRN Reason Stop Dose Admin Hydrocodone Bitart/Acetaminophen 1 tab 12/04/18 23:28 12/06/18 11:24 [place] 10/325 PO 1 tab Q4HR PRN Administration Pain Carbamazepine 400 mg 12/05/18 09:00 12/06/18 09:08 Tegretol PO 400 mg QAM HENRY Administration Carbamazepine 600 mg 12/05/18 21:00 12/05/18 20:00 Tegretol PO 600 mg HS HENRY Administration Cyclobenzaprine HCl 10 mg 12/05/18 09:32 12/06/18 14:57 Flexeril PO 10 mg TID PRN Administration Muscle Spasm Fenofibrate 145 mg 12/05/18 09:00 12/06/18 09:08 Tricor PO 145 mg DAILY HENRY Administration Insulin Glargine 65 units/ 0.65 mls @ 0 mls/hr 12/06/18 09:00 12/06/18 09:07 Miscellaneous Medication SC 0.65 mls BID HENRY Administration Insulin Human Regular 0 units 12/06/18 06:15 12/06/18 11:19 Humulin R SC 3 unit .MILD SLIDING PRN Administration MILD SLIDING SCALE Protocol Lisinopril 20 mg 12/05/18 09:00 12/06/18 09:10 Zestril PO 20 mg DAILY HENRY Administration Pantoprazole Sodium 40 mg 12/05/18 09:00 12/06/18 09:10 Protonix PO 40 mg DAILY HENRY Administration Pregabalin 75 mg 12/05/18 09:00 12/06/18 09:09 Lyrica PO 75 mg BID HENRY Administration - Exam NAD Eye: anicteric sclera ENT: no oropharyngeal lesions Neck: supple Heart: RRR Respiratory: CTAB Gastrointestinal: soft, non-tender Skin: no rashes Neurological: no weakness Musculoskeletal - other findings: right chest wall tenderness Psychiatric: normal affect, normal behavior Hosp A/P (1) Chest pain Code(s): R07.9 - CHEST PAIN, UNSPECIFIED Status: Acute (2) Anxiety and depression Code(s): F41.9 - ANXIETY DISORDER, UNSPECIFIED; F32.9 - MAJOR DEPRESSIVE DISORDER, SINGLE EPISODE, UNSPECIFIED Status: Chronic (3) Hypertriglyceridemia Code(s): E78.1 - PURE HYPERGLYCERIDEMIA Status: Chronic (4) Hypothyroidism Code(s): E03.9 - HYPOTHYROIDISM, UNSPECIFIED Status: Chronic (5) DKA (diabetic ketoacidoses) Code(s): E13.10 - OTH DIABETES MELLITUS WITH KETOACIDOSIS WITHOUT COMA Status : Resolved Qualifiers: Diabetes mellitus type: type 2 Diabetes mellitus complication detail: without coma Qualified Code(s): E11.10 - Type 2 diabetes mellitus with ketoacidosis without coma - Plan out of bed/ambulate Pt is off of imnsulin drip. Triglycerides improved. Stress to r/o cardiac etiology for chest pain. Likely home in 24 hours. Transfer to telemetry floor.
[2018-12-06] MEDS: glipiZIDE 5 MG TAB PO SCH (17:00)
[2018-12-06] MEDS: metFORMIN 500 MG TAB PO SCH (17:01)
[2018-12-07] MEDS: HYDROcodone/Acetaminophen 10/325 mg Tablet PO PRN ×3 (01:12→10:14)
[2018-12-07 04:42] LABS: #Basophils 0.1 thou/uL (0.0-0.2); #Eosinphils 0.1 thou/uL (0.0-0.7); #Lymphocytes 2.4 thou/uL (1.20-3.40); #Monocytes 0.5 thou/uL (0.11-0.59); #Neutrophils 2.7 thou/uL (1.40-6.50); %Basophils 1.6 % (0.0-1.0); %Eosinophils 2.4 % (0.0-10.0); %Lymphocytes 41.5 % (21.0-51.0); %Monocytes 8.5 % (0.0-10.0); %Neutrophils 46.1 % (42.0-75.0); Hemoglobin 14.5 g/dL (14.0-18.0); Mean Corpuscular HGB CONC 36.6 g/dL (32.0-36.0); Mean Corpuscular Hemoglobin 28.7 pg (27.0-31.0); Mean Corpuscular Volume 78.5 fL (78.0-98.0); Platelet Count 86 thou/uL (130-400); RBC Distribution Width 12.5 % (11.5-14.5); Red Blood Cell (RBC) Count 5.04 mill/uL (4.70-6.10); White Blood Cell (WBC) Count 5.8 thou/uL (4.8-10.8)
[2018-12-07 04:51] LABS: Anion Gap 19 mmol/L (10-20); BUN (Urea Nitrogen) 10 mg/dL (8.9-20.6); Calc. Creatinine Clearance 209 mL/min (70-130); Calcium 9.1 mg/dL (7.8-10.44); Carbon Dioxide 19 mmol/L (22-29); Chloride 97 mmol/L (98-107); Estimated GFR-MDRD Greater than 90; Glucose 172 mg/dL (70-105); Potassium 3.9 mmol/L (3.5-5.1); Sodium 131 mmol/L (136-145)
[2018-12-07] MEDS: Cyclobenzaprine 10 MG TAB PO PRN (05:17)
[2018-12-07] MEDS: Lisinopril 20 MG TAB PO SCH (10:10)
[2018-12-07] MEDS: metFORMIN 500 MG TAB PO SCH ×2 (10:12→16:38)
[2018-12-07] MEDS: glipiZIDE 5 MG TAB PO SCH ×2 (10:13→16:38)
[2018-12-07] MEDS: Pregabalin 75 MG CAP PO SCH (10:13)
[2018-12-07] MEDS: Insulin Glargine 65 UNITS in Pre-Filled Syringe 1 EACH SC SCH (10:14)
[2018-12-07] MEDS: Fenofibrate Nanocrystallized 145 MG TAB PO SCH (10:14)
[2018-12-07 10:18] VITALS: BP 124/81
--- NOTE | 2018-12-07 11:27 | NM ---
CARDIAC SPECT: HISTORY: A 33-year-old male with chest pain, hypertension, diabetes. TECHNIQUE: A myocardial perfusion scan is performed using the single-isotope 2-day protocol with 13 mCi Techneti um 99m sestamibi injected intravenously for rest and stress images. Pharmacologic stress with adenos ine is monitored and interpreted by Dr. Perry. FINDINGS: Homogeneous tracer distribution is seen in the myocardial segments on stress and rest images without fixed or reversible defects. GATED SPECT LVEF: 52%. WALL MOTION EXAM: Normal. IMPRESSION: Normal myocardial perfusion scan. POS: TPC
[2018-12-07] MEDS: carBAMazepine 200 MG TAB PO SCH (13:06)
[2018-12-07] MEDS ORDERED: ADENOSINE 60 MG/20 ML VIAL ONE (14:05)
[2018-12-07 15:10] VITALS: TEMP 97.6
[2018-12-07] MEDS ORDERED: Cyclobenzaprine 10 MG TAB PO PRN (15:19)
[2018-12-07] MEDS: Insulin Regular 300 UNITS/3 ML VIAL SC PRN (16:38)
--- NOTE | 2018-12-08 04:22 | DIS ---
DATE OF ADMISSION: 12/04/2018 DATE OF DISCHARGE: 12/07/2018 PRIMARY CARE PROVIDER: Abena Kaplan PA-C DISCHARGE DIAGNOSES: 1. Metabolic acidosis. 2. Severe hypertriglyceridemia. 3. Chest pain. 4. Chest pain most likely secondary to musculoskeletal etiology. CONDITION OF PATIENT ON THE DAY OF DISCHARGE: Stable. I assessed Mr. Puga on the day of discharge. He reports that chest pain is better. Vital signs are stable. S1 and S2 are heard, regular. Lungs are clear to auscultation bilaterally. HOSPITAL COURSE: Mr. Puga is a pleasant 33-year-old gentleman who was admitted to [facility] for metabolic acidosis in the context of severe hypertriglyceridemia. He was treated with intravenous insulin. His triglycerides improved from 3499 to 1965, subsequently trended up to 2466. He did not have any abdominal pain. He did have right-sided chest pain, which was reproducible. He underwent nuclear stress test as well, which was normal. Left ventricular ejection fraction was 52%. He is being discharged home in a stable condition. LABORATORY DATA: On the day of discharge, he has sodium 131, potassium 3.9, and creatinine 0.59; white count 5800, hemoglobin 14.5, and platelet count 86,000. DISCHARGE MEDICATIONS: 1. [place] 1 tablet every 4 hours as needed. 2. Tegretol 600 mg at bedtime and 400 mg in the morning. 3. Desipramine 25 mg at bedtime. 4. Glipizide 5 mg 2 times a day. 5. Lantus insulin 65 units 2 times a day. 6. Lisinopril 20 mg daily. 7. Metformin 1000 mg 2 times a day. 8. Pregabalin 75 mg 2 times a day. 9. Flexeril 10 mg at bedtime as needed, prescription for 15 doses. 10. Tricor 145 mg daily. 11. Omeprazole 40 mg daily. FOLLOWUP APPOINTMENTS: Patient is advised to follow up with his primary care provider in 3 to 5 days' time. Many thanks for allowing me to participate in your patient's care. Please feel free to contact me with any questions or concerns. DISCHARGE DESTINATION: Home. TIME SPENT: Total amount of time spent coordinating this discharge: Thirty-two minutes. Job ID: [id number]
== END 2018-12-07 17:26 | disposition home or self-care (01) | DRG 639 ==
LOC: ERS 17:01 → IMCU/EMU 22:40
PROVIDERS: ADMIT Hospitalist; ATTEND Hospitalist
DX: E11.10 Type 2 diabetes mellitus with ketoacidosis without coma (principal); E11.40 Type 2 diabetes mellitus with diabetic neuropathy, unspecified; E03.9 Hypothyroidism, unspecified; K21.9 Gastro-esophageal reflux disease without esophagitis; F41.9 Anxiety disorder, unspecified; F31.9 Bipolar disorder, unspecified; E78.1 Pure hyperglyceridemia; R07.89 Other chest pain; Z79.4 Long term (current) use of insulin; Z88.8 Allergy status to other drugs, medicaments and biological substances; Z79.899 Other long term (current) drug therapy
CPT/HCPCS: 36415; 36416; 71045; 71275; 78452; 80048; 80053; 82010; 83690; 83880; 84478; 84484; 85025; 85379; 93005; 93017; 96361; 96374; 96375; A9500; J0153; J1815; J2270; J2405; J3490; Q9966